=== PATIENT | female | born 1950 | race Caucasian/White ===

== ENCOUNTER 2016-08-13 19:19 | Emergency (ER) | payer MEDICARE, BC ==
[2016-08-13 19:36] VITALS: BP 142/93
[2016-08-13] MEDS ORDERED: Sodium Chloride 0.9% 250 ML IV ONE (20:04)
--- NOTE | 2016-08-13 20:04 | EDM.PDOC ---
ED HPI EYE COMPLAINT - General Chief Complaint: Eye Problems Stated Complaint: POSS EYELASH IN EYE Time Seen by Provider: 08/13/16 19:33 Source: Reports: Patient, RN notes reviewed - History of Present Illness INITIAL COMMENTS - FREE TEXT/NARRATIVE: 65 year old female with foreign body sensation R eye. feels scratchy. This started last evening but has become more irriatated today. She tried to flush her eye at home. Her eye is more sore this evening, R lateral eye. Does not wear contacts. No mattering or crusting. - Related Data Allergies/ADRs: Allergies amoxicillin trihydrate [From Augmentin] Allergy (Severe, Verified 04/24/14 11:04 ) Hives doxycycline Allergy (Severe, Verified 04/24/14 11:04) Swelling potassium clavulanate [From Augmentin] Allergy (Severe, Verified 04/24/14 11:04) Hives Home Meds: Ambulatory Orders Medication Instructions Recorded Confirmed Aspirin [Children's Aspirin] 81 mg PO DAILY 08/30/13 08/13/16 Cyclobenzaprine [Flexeril] 20 mg PO BID 08/30/13 08/13/16 Docusate Sodium [Colace] 1 tab PO BEDTIME 08/30/13 08/13/16 Gabapentin [Neurontin] 300 mg PO DAILY 08/30/13 08/13/16 Hydrocodone/Acetaminophen 1 each PO Q6HR PRN 08/30/13 08/13/16 [Hydrocodone-Acetaminophen 5-325] Levothyroxine Sodium [Synthroid] 75 mcg PO DAILY 08/30/13 08/13/16 Colesevelam HCl [Welchol] 625 mg PO BID 04/24/14 08/13/16 Gemfibrozil 300 mg PO BID 08/13/16 08/13/16 Past Medical History HEENT History: Reports: Cataract Cardiovascular History: Reports: High cholesterol, Hypertension Respiratory History: Reports: Bronchitis, recurrent, PE Gastrointestinal History: Reports: Diverticulosis, GERD 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 Endocrine/Metabolic History: Reports: Hypothyroidism - Past Surgical History HEENT Surgical History: Reports: Cataract surgery, Tonsillectomy Other HEENT Surgeries/Procedures: 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; 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 GI Surgical History: Reports: Other (see below) Other GI Surgeries/Procedures: partial large intestine removed Female Surgical History: Reports: Other (see below) Other Female Surgeries/Procedures: ru[tured ovary Social & Family History - Tobacco Use Smoking Status *Q: Never Smoker Years of Tobacco use: 15 Used Tobacco, but Quit: Yes Month Tobacco Last Used: four years ago - Caffeine Use Caffeine Use: Reports: Coffee - Alcohol Use Days Per Week of Alcohol Use: 0 - Recreational Drug Use Recreational Drug Use: No ED ROS GENERAL - Review of Systems Review Of Systems: See Below Constitutional: Denies: fever, chills HEENT: Reports: Eye pain (r lateral eye feels scratchy. ). Denies: Contact Lenses, Eye discharge Respiratory: Denies: Shortness of Breath Cardiovascular: Denies: Chest pain GI/Abdominal: Denies: Nausea, Vomiting Musculoskeletal: Reports: no symptoms Skin: Denies: rash Neurological: Denies: Headache ED EXAM GENERAL W FULL EYE - Physical Exam Exam: See Below General Appearance: alert, no apparent distress Eye Exam: right eye: conjunctival injection (mild, lateral aspect of eye), bilateral eye: PERRL Cornea Exam: bilateral: normal appearance Anterior Chamber: bilateral: normal appearance Nose: normal inspection Throat/Mouth: Normal inspection Head: No: facial swelling Neck: supple Respiratory/Chest: no respiratory distress Neurological: alert, oriented, no motor/sensory deficits Skin Exam: Warm, Dry, Normal color, No rash Course - Vital Signs Last Recorded V/S: Last Vital Signs Temp 98.1 F 08/13/16 19:34 Pulse 93 08/13/16 19:34 Resp 20 08/13/16 19:34 BP 142/93 H 08/13/16 19:34 Pulse Ox 94 L 08/13/16 19:34 - Orders/Labs/Meds Orders: Active Orders 24 hr Category Date Time Status Sodium Chloride 0.9% [Normal Saline] 250 ml Med 08/13/16 20:04 Active IV .BOLUS Medication Orders Sodium Chloride (Normal Saline) 250 mls @ 999 mls/hr IV .BOLUS ONE Stop: 08/13/16 20:19 Meds: Medications Generic Name Dose Route Start Last Admin Trade Name Freq PRN Reason Stop Dose Admin Sodium Chloride 250 mls @ 999 mls/hr 08/13/16 20:04 Normal Saline IV 08/13/16 20:19 .BOLUS ONE - Re-Assessments/Exams Free Text/Narrative Re-Assessment/Exam: 08/13/16 20:07 no foreign material seen. she had good relief of discomfort with topical propericaine. Cornea looks good. Is suspect whatevever was in her eye is out. She probably flushed it out at home and now residual irritation. Will further flush her eye with 250 cc NS. Departure - Departure Time of Disposition: 20:09 Disposition: Home, Self-Care 01 Condition: fair Clinical Impression: Conjunctivitis Qualifiers: Chronic conjunctivitis type: unspecified Laterality: right Forms: ED Department Discharge Additional Instructions: there is no foreign body visible at this time, you can alternate tylenol and ibuprofen as needed for discomfort. You can also alternate warm and cool compresses as needed. Your eye should feel better tomorrow and should be getting back to normal by Monday. Follow up with your eye Dr if not completely back to normal Monday as expected. - My Orders Last 24 Hours: My Active Orders 08/13/16 20:04 Sodium Chloride 0.9% [Normal Saline] 250 ml IV .BOLUS - Assessment/Plan Last 24 Hours: My Active Orders 08/13/16 20:04 Sodium Chloride 0.9% [Normal Saline] 250 ml IV .BOLUS
== END 2016-08-13 20:28 | disposition home or self-care (01) ==
LOC: JD.ED 19:19
DX: H10.9 Unspecified conjunctivitis (principal); E78.00 Pure hypercholesterolemia, unspecified; I10 Essential (primary) hypertension; K21.9 Gastro-esophageal reflux disease without esophagitis; E03.9 Hypothyroidism, unspecified; Z98.49 Cataract extraction status, unspecified eye; Z98.890 Other specified postprocedural states; Z88.1 Allergy status to other antibiotic agents; Z88.8 Allergy status to other drugs, medicaments and biological substances
CPT/HCPCS: 99283; J7040; 99282

== ENCOUNTER 2016-12-12 06:00 | Inpatient (IN) | payer MEDICARE, BC ==
[~2016-12-12 06:00] MED LIST: Lactated Ringers 1,000 ML IV SCH; Lidocaine 1%/Sod Bicarbonate in NS 8.4% 1 ML Syringe IV PRN; Sodium Chloride 0.9% 10 ML Syringe FLUSH PRN
--- NOTE | 2016-12-12 06:51 | PCM.PREANE ---
Preanesthetic Assessment - Anesthesia/Transfusion/Family Hx Anesthesia History: Prior Anesthesia Without Reaction Family History of Anesthesia Reaction: No Transfusion History: No Prior Transfusion(s) - Review of Systems General: No Symptoms Pulmonary: No Symptoms Cardiovascular: Dyspnea on Exertion Gastrointestinal: No Symptoms Neurological: No Symptoms Other: Reports: Easy Bruising, Thyroid Problems (hypothyroid) - Physical Assessment NPO Status Date: 12/11/16 NPO Status Time: 20:30 Pulse: 96 O2 Sat by Pulse Oximetry: 90 Respiratory Rate: 16 Blood Pressure: 142/85 Temperature: 36.8 C Vital Signs: Last Vital Signs Temp 36.8 C 12/12/16 06:15 Pulse 96 12/12/16 06:15 Resp 16 12/12/16 06:15 BP 142/85 H 12/12/16 06:15 Pulse Ox 90 L 12/12/16 06:15 Height: 1.63 m Weight: 97.069 kg ASA Class: 2 Mental Status: Alert & Oriented x3 Airway Class: Mallampati = 2 Dentition: Reports: Normal Dentition Thyro-Mental Finger Breadths: 3 Mouth Opening Finger Breadths: 3 ROM/Head Extension: Full Lungs: Clear to Auscultation, Normal Respiratory Effort Cardiovascular: Regular Rate, Regular Rhythm, No Murmurs - Lab Values: Laboratory Last Values WBC 8.88 K/mm3 (3.98-10.04) 11/25/16 11:36 RBC 4.63 M/mm3 (3.98-5.22) 11/25/16 11:36 Hgb 14.6 gm/L (11.2-15.7) 11/25/16 11:36 Hct 43.5 % (34.1-44.9) 11/25/16 11:36 MCV 94.0 fl (79.4-94.8) 11/25/16 11:36 MCH 31.5 pg (25.6-32.2) 11/25/16 11:36 MCHC 33.6 g/dl (32.2-35.5) 11/25/16 11:36 RDW Std Deviation 47.0 fL (36.4-46.3) H 11/25/16 11:36 Plt Count 308 K/mm3 (182-369) 11/25/16 11:36 MPV 10.9 fl (9.4-12.3) 11/25/16 11:36 Neut % (Auto) 60.8 % (34.0-71.1) 11/25/16 11:36 Lymph % (Auto) 28.9 % (19.3-51.7) 11/25/16 11:36 Pratt % (Auto) 8.1 % (4.7-12.5) 11/25/16 11:36 Eos % (Auto) 1.7 (0.7-5.8) 11/25/16 11:36 Baso % (Auto) 0.2 % (0.1-1.2) 11/25/16 11:36 Neut # (Auto) 5.39 K/mm3 (1.56-6.13) 11/25/16 11:36 Lymph # (Auto) 2.57 K/mm3 (1.18-3.74) 11/25/16 11:36 Pratt # (Auto) 0.72 K/mm3 (0.24-0.36) H 11/25/16 11:36 Eos # (Auto) 0.15 K/mm3 (0.04-0.36) 11/25/16 11:36 Baso # (Auto) 0.02 K/mm3 (0.01-0.08) 11/25/16 11:36 C-Reactive Protein 0.3 mg/dL (<1.0) 11/25/16 11:36 MRSA (PCR) Negative 11/25/16 11:36 - Allergies Allergies/Adverse Reactions: Allergies Allergy/AdvReac Type Severity Reaction Status Date / Time amoxicillin trihydrate Allergy Severe Hives Verified 12/08/16 14:53 [From Augmentin] doxycycline Allergy Severe Swelling Verified 12/08/16 14:53 potassium clavulanate Allergy Severe Hives Verified 12/08/16 14:53 [From Augmentin] Euoeeks-Yxu-Ozv Reductase AdvReac Muscle Verified 12/09/16 08:43 Inhibitor Aches - Anesthesia Plan Pre-Op Medication Ordered: None - Acknowledgements Anesthesia Type Planned: Spinal Pt an Appropriate Candidate for the Planned Anesthesia: Yes Alternatives and Risks of Anesthesia Discussed w Pt/Guardian: Yes Pt/Guardian Understands and Agrees with Anesthesia Plan: Yes PreAnesthesia Questionnaire HEENT History: Reports: None Cardiovascular History: Reports: High Cholesterol, Hypertension Respiratory History: Reports: None Gastrointestinal History: Reports: GERD Genitourinary History: Reports: None 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 Musculoskeletal History: Reports: Fibromyalgia, Osteoarthritis Other Musculoskeletal History: Restless leg syndrome Neurological History: Reports: None Psychiatric History: Reports: None Endocrine/Metabolic History: Reports: Hypothyroidism Hematologic History: Reports: None Immunologic History: Reports: None Oncologic (Cancer) History: Reports: None Dermatologic History: Reports: None - Past Surgical History Head Surgeries/Procedures: Reports: None HEENT Surgical History: Reports: None Cardiovascular Surgical History: Reports: None Respiratory Surgical History: Reports: None GI Surgical History: Reports: Cholecystectomy Female Surgical History: Reports: None Endocrine Surgical History: Reports: None Neurological Surgical History: Reports: None Musculoskeletal Surgical History: Reports: None Oncologic Surgical History: Reports: None Dermatological Surgical History: Reports: None - SUBSTANCE USE Smoking Status *Q: Former Smoker Tobacco Use Within Last Twelve Months: No Second Hand Smoke Exposure: No Days Per Week of Alcohol Use: 0 Recreational Drug Use History: No - HOME MEDS Home Medications: Home Meds Docusate Sodium [Colace] 1 tab PO BEDTIME 08/30/13 [History] Hydrocodone/Acetaminophen [Hydrocodone-Acetaminophen 5-325] 1 each PO Q6HR PRN 08/30/13 [History] Levothyroxine Sodium [Synthroid] 75 mcg PO DAILY 08/30/13 [History] Colesevelam HCl [Welchol] 625 mg PO BID 04/24/14 [History] Gemfibrozil 300 mg PO BID 08/13/16 [History] Aspirin [Halfprin] 81 mg PO DAILY 12/08/16 [History] Gabapentin [Neurontin] 100 - 200 mg PO QAM 12/08/16 [History] Gabapentin [Neurontin] 300 mg PO BEDTIME 12/08/16 [History] Relafen. 500 mg PO BID 12/08/16 [History] amLODIPine [Norvasc] 10 mg PO DAILY 12/08/16 [History] traZODone 50 mg PO BEDTIME 12/08/16 [History] - CURRENT (IN HOUSE) MEDS Current Meds: Current Medications Lactated Ringer's (Ringers, Lactated) 1,000 mls @ 125 mls/hr IV ASDIRECTED SAL Lidocaine/Sodium Bicarbonate (Buffered Lidocaine 1% In Ns 8.4%) 0.25 ml IV ONETIME PRN PRN Reason: Prior to IV Start Sodium Chloride (Saline Flush) 10 ml FLUSH ASDIRECTED PRN PRN Reason: Keep Vein Open Discontinued Medications Bupivacaine HCl (Marcaine 0.25%) Confirm Administered Dose 30 ml .ROUTE .STK- MED ONE Stop: 12/12/16 06:07 Cefazolin Sodium (Ancef) Confirm Administered Dose 2 gm .ROUTE .STK-MED ONE Stop: 12/12/16 06:06 Iodine (Iodine 2% Mild Tincture) Confirm Administered Dose 30 ml .ROUTE .STK- MED ONE Stop: 12/12/16 06:06 Tranexamic Acid (Cyklokapron) Confirm Administered Dose 1,000 mg .ROUTE .STK- MED ONE Stop: 12/12/16 06:06
[2016-12-12] MEDS ORDERED: Propofol 200 MG/20 ML SDV ONE ×2 (07:11→08:10)
[2016-12-12] MEDS ORDERED: Ondansetron 4 MG/2 ML SDV ONE (07:11)
[2016-12-12] MEDS ORDERED: fentaNYL 100 MCG/2 ML SDV ONE (07:11)
[2016-12-12] MEDS ORDERED: Midazolam 1 MG/ML 2 ML SDV ONE (07:12)
[2016-12-12] MEDS ORDERED: Morphine PF 10 MG/10 ML SDV ONE (07:12)
[2016-12-12] MEDS ORDERED: ceFAZolin 1 GM Vial ONE (07:38)
[2016-12-12] MEDS ORDERED: Lactated Ringers 1,000 ML ONE (07:40)
[2016-12-12] MEDS: ceFAZolin 1 GM Vial ONE ×2 (07:50→08:17)
[2016-12-12] MEDS: Iodine/Sodium Iodide 2% Tincture 30 ML Bottle ONE ×2 (07:50→08:13)
[2016-12-12] MEDS: Morphine 8 MG, EPINEPHrine 0.3 MG, Cefuroxime 750 MG, Ketorolac 30 MG, Sodium Chloride ... ONE ×15 (07:51→12:15)
[2016-12-12] MEDS: Vancomycin 1 GM SDV ONE ×2 (07:51→08:24)
[2016-12-12] MEDS: Bupivacaine 0.25% 30 ML SDV ONE ×2 (07:51→08:22)
[2016-12-12] MEDS ORDERED: ePHEDrine 50 MG/ML SDV ONE (07:58)
[2016-12-12] MEDS ORDERED: Sennosides 8.6 MG Tab PO PRN (08:50)
[2016-12-12] MEDS ORDERED: Morphine 2 MG/ML Syringe IVPUSH PRN (08:50)
[2016-12-12] MEDS ORDERED: Bisacodyl 5 MG Tab PO PRN (08:50)
[2016-12-12] MEDS ORDERED: Magnesium Hydroxide 400 MG/5 ML Susp 30 ML Cup PO PRN (08:50)
[2016-12-12] MEDS ORDERED: fentaNYL 100 MCG/2 ML SDV IVPUSH PRN (09:00)
--- NOTE | 2016-12-12 09:01 | PCM.POSTAN ---
POST ANESTHESIA ASSESSMENT - MENTAL STATUS Mental Status: Alert, Oriented - VITAL SIGNS Pulse Rate: 107 SaO2: 94 Resp Rate: 14 Blood Pressure: 114/60 Temperature: 36.8 C - RESPIRATORY Respiratory Status: Respiratory Rate WNL, Airway Patent, O2 Saturation Stable, Supplemental Oxygen - CARDIOVASCULAR CV Status: Pulse Rate WNL, Blood Pressure Stable - GASTROINTESTINAL GI Status: No Symptoms - PAIN Pain Score: 0 - POST OP HYDRATION Hydration Status: Adequate & Stable - OBSERVATIONS Free Text/Narrative:: no anesthesia complications noted
[2016-12-12] MEDS ORDERED: Naloxone 0.4 MG/ML SDV IVPUSH PRN (09:30)
--- NOTE | 2016-12-12 10:17 | CR ---
Left knee: AP and lateral views of the left knee were obtained. Comparison: Previous left knee study of 01/06/16. Left knee prosthesis is seen. Components are aligned. Underlying bony structures are intact. No fracture is seen. Air is noted within the joint secondary to the surgical procedure. Impression: 1. Satisfactory radiographic appearance of recently placed left knee prosthesis. Diagnostic code #2
[2016-12-12] MEDS: Levothyroxine 75 MCG Tab PO SCH (11:16)
[2016-12-12] MEDS: Docusate Sodium 100 MG Cap PO SCH ×2 (11:17→22:18)
[2016-12-12] MEDS: amLODIPine 10 MG Tab PO SCH (11:17)
[2016-12-12] MEDS: Famotidine 20 MG Tab PO SCH ×3 (11:18→22:17)
[2016-12-12] MEDS ORDERED: diphenhydrAMINE 50 MG/ML SDV IVPUSH ONE (11:58)
[2016-12-12] MEDS: Gemfibrozil 600 MG Tab PO SCH ×2 (12:10→22:17)
[2016-12-12] MEDS: Colesevelam 625 MG Tab PO SCH ×2 (12:10→22:16)
[2016-12-12] MEDS ORDERED: Albuterol 0.083% 2.5 MG/3 ML Neb Soln NEB PRN (14:27)
--- NOTE | 2016-12-12 14:42 | PCM.CONS ---
H&P History of Present Illness - General Date of Service: 12/12/16 Admit Problem/Dx: Admission Diagnosis/Problem Admission Diagnosis/Problem Osteoarthritis of knee Source of Information: Patient, Old Records, Provider, RN Notes Reviewed, Significant Other History Limitations: Reports: Physical Impairment - History of Present Illness Initial Comments - Free Text/Narative: This is a 66-year-old, white female, with past medical history of HTN, GERD, Hypothyroidism, OA, RLS and Fibromyalgia who underwent left total knee arthroplasty post operative day zero. Patient is doing relatively well. Currently, her pain is controlled. She denies any acute issues. Hospital Medicine was consulted for postoperative care. Left Knee Pain Score (Numeric/FACES): 10 - Related Data Allergies/Adverse Reactions: Allergies Allergy/AdvReac Type Severity Reaction Status Date / Time amoxicillin trihydrate Allergy Severe Hives Verified 12/08/16 14:53 [From Augmentin] doxycycline Allergy Severe Swelling Verified 12/08/16 14:53 potassium clavulanate Allergy Severe Hives Verified 12/08/16 14:53 [From Augmentin] Qwutapi-Cxd-[id number] Reductase AdvReac Muscle Verified 12/09/16 08:43 Inhibitor Aches Home Medications: Home Meds Docusate Sodium [Colace] 1 tab PO BEDTIME 08/30/13 [History] Hydrocodone/Acetaminophen [Hydrocodone-Acetaminophen 5-325] 1 each PO Q6HR PRN 08/30/13 [History] Levothyroxine Sodium [Synthroid] 75 mcg PO DAILY 08/30/13 [History] Colesevelam HCl [Welchol] 625 mg PO BID 04/24/14 [History] Gemfibrozil 300 mg PO BID 08/13/16 [History] Aspirin [Halfprin] 81 mg PO DAILY 12/08/16 [History] Gabapentin [Neurontin] 100 - 200 mg PO QAM 12/08/16 [History] Gabapentin [Neurontin] 300 mg PO BEDTIME 12/08/16 [History] Relafen. 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 Musculoskeletal History: Reports: Fibromyalgia, Osteoarthritis Other Musculoskeletal History: Restless leg syndrome Neurological History: Reports: None Psychiatric History: Reports: None Endocrine/Metabolic History: Reports: Hypothyroidism Hematologic History: Reports: None Immunologic History: Reports: None Oncologic (Cancer) History: Reports: None Dermatologic History: Reports: None - Past Surgical History Head Surgeries/Procedures: Reports: None HEENT Surgical History: Reports: None Cardiovascular Surgical History: Reports: None Respiratory Surgical History: Reports: None GI Surgical History: Reports: Cholecystectomy Female Surgical History: Reports: None Endocrine Surgical History: Reports: None Neurological Surgical History: Reports: None Musculoskeletal Surgical History: Reports: None Oncologic Surgical History: Reports: None Dermatological Surgical History: Reports: None Social & Family History - Tobacco Use Smoking Status *Q: Former Smoker Years of Tobacco use: 40 Packs/Tins Daily: 1 Used Tobacco, but Quit: Yes Month Tobacco Last Used: 01/17/09 Second Hand Smoke Exposure: No - Caffeine Use Caffeine Use: Reports: Coffee - Alcohol Use Days Per Week of Alcohol Use: 0 - Recreational Drug Use Recreational Drug Use: No Drug Use in Last 12 Months: No H&P Review of Systems - Review of Systems: Review Of Systems: See Below General: Denies: Fever, Chills, Malaise, Weakness, Fatigue HEENT: Reports: No Symptoms Pulmonary: Denies: Shortness of Breath Cardiovascular: Denies: Chest Pain Gastrointestinal: Denies: Abdominal Pain, Nausea, Vomiting Genitourinary: Reports: No Symptoms Musculoskeletal: Reports: No Symptoms Skin: Denies: Cyanosis, Pruritis, Rash, Erythema Psychiatric: Denies: Depression, Anxiety, Agitation, Hallucinations, Suicidal Ideation, Homicidal Ideation Neurological: Reports: Difficulty Walking, Gait Disturbance. Denies: Confusion , Weakness Hematologic/Lymphatic: Reports: No Symptoms Immunologic: Reports: No Symptoms Exam - Exam Exam: See Below - Vital Signs Vital Signs: Last Vital Signs Temp 36.5 C 12/12/16 13:46 Pulse 91 12/12/16 13:46 Resp 16 12/12/16 13:46 BP 120/61 12/12/16 13:46 Pulse Ox 93 L 12/12/16 13:46 Weight: 97.069 kg - Exam Quality Assessment: Supplemental Oxygen General: Alert, Oriented, Cooperative, Other (Overweight). No: Mild Distress HEENT: Conjunctiva Clear, EACs Clear, EOMI, Hearing Intact, Mucosa Moist & [place] , Nares Patent, Normal Nasal Septum, Posterior Pharynx Clear, Pupils Equal, Pupils Reactive Neck: Supple, Trachea Midline, +2 Carotid Pulse wo Bruit, Full Range of Motion Cardiovascular: Regular Rate, Regular Rhythm GI/Abdominal Exam: Normal Bowel Sounds, Soft, Non-Tender, No Organomegaly, No Distention, No Abnormal Bruit, No Mass (Female) Exam: Other (indwelling ball catheter) Rectal (Female) Exam: Deferred Back Exam: Normal Inspection, Decreased Range of Motion Extremities: Normal Inspection, Normal Range of Motion, Non-Tender, No Pedal Edema, Normal Capillary Refill Peripheral Pulses: 2+: Posterior Tibial (L), Posterior Tibial (R), Dorsalis Pedis (L), Dorsalis Pedis (R) Skin: Warm, Dry, Intact Neuro Extensive - Mental Status: Oriented x3, Normal Cognition, Memory Intact Neuro Extensive - Motor, Sensory, Reflexes: CN II-XII Intact (limited but grossly intact), Abnormal Gait Psychiatric: Alert, Normal Affect, Normal Mood - Patient Data Result Diagrams: 11/25/16 11:36 Consult PN Assessment/Plan POD#: 0 Procedures: Procedures COMPLETE CBC W/AUTO DIFF WBC (12/08/15) COMPREHEN METABOLIC PANEL (12/08/15) CT LOWER EXTREMITY W/O DYE (12/21/15) CULTURE SCREEN ONLY (04/24/14) EMERGENCY DEPT VISIT (08/13/16) EMERGENCY DEPT VISIT (04/24/14) EMERGENCY DEPT VISIT (08/30/13) EXTREMITY STUDY (12/08/15) INFLUENZA A/B AG IA (04/24/14) MRI JNT OF LWR EXTRE W/O DYE (12/30/15) OFFICE/OUTPATIENT VISIT EST (12/21/15) ROUTINE VENIPUNCTURE (12/08/15) STREP A AG IA (04/24/14) X-RAY EXAM KNEE 4 OR MORE (08/30/13) X-RAY EXAM OF KNEE 3 (01/06/16) X-RAY EXAM OF KNEES (01/06/16) X-RAY EXAM OF SHOULDER (08/30/13) Problem List Initiated/Reviewed/Updated: Yes Plan: Assessment: Acute: Post-Operative Care State - Stable - Continue to monitor for hemodynamic instability S/p Left Total Knee Arthroplasty - Stable - DVT and Pain Management as per primary team Hx/o Chronic Knee Pain 2/2 OA - Pain Management as per primary team Chronic: HTN GERD Hypothyroidism RLS Fibromyalgia OA Plan: She is clinically stable Routine AM labs Continue home meds PT/OT consult IS q2 awake Thank you for the opportunity to participate in the management of this patient. Requesting Provider: Dr. Ocampo Date Consult Requested: 12/12/16 Reason for Consult: Post-Operative Care Patient History Reviewed: Yes Admission H&P Reviewed: Yes Consult Result/Summary: Stable
[2016-12-12] MEDS: ceFAZolin 2 GM in Premix Bag 1 BAG IV SCH ×2 (15:03→22:16)
[2016-12-12] MEDS: Ondansetron 4 MG/2 ML SDV IVPUSH PRN (15:49)
[2016-12-12] MEDS: Acetaminophen/oxyCODONE 325-5 MG Tab PO PRN ×2 (17:16→22:19)
[2016-12-12] MEDS ORDERED: diphenhydrAMINE 50 MG/ML SDV IVPUSH PRN (20:01)
[2016-12-12] MEDS: Ketorolac 15 MG/ML SDV IVPUSH PRN (20:11)
[2016-12-12] MEDS ORDERED: Gabapentin 300 MG Cap PO SCH (21:00)
[2016-12-12] MEDS ORDERED: traZODone 50 MG Tab PO SCH (21:00)
[2016-12-12] MEDS: Cyclobenzaprine 10 MG Tab PO PRN (22:19)
[2016-12-13] MEDS: Ketorolac 15 MG/ML SDV IVPUSH PRN (06:08)
[2016-12-13] MEDS: Acetaminophen/oxyCODONE 325-5 MG Tab PO PRN ×2 (06:09→11:28)
[2016-12-13] MEDS: Levothyroxine 75 MCG Tab PO SCH (06:09)
[2016-12-13] MEDS: ceFAZolin 2 GM in Premix Bag 1 BAG IV SCH (06:10)
[2016-12-13] MEDS ORDERED: Gabapentin 100 MG Cap PO SCH (08:00)
--- NOTE | 2016-12-13 08:12 | PCM48HPAN ---
Post Anesthesia Note - EVALUATION WITHIN 48HRS OF ANESTHETIC Vital Signs in Normal Range: Yes Patient Participated in Evaluation: Yes Respiratory Function Stable: Yes Airway Patent: Yes Cardiovascular Function Stable: Yes Hydration Status Stable: Yes Pain Control Satisfactory: Yes ("itchy" beadryl ordered) Nausea and Vomiting Control Satisfactory: Yes Mental Status Recovered: Yes - COMMENTS/OBSERVATIONS Free Text/Narrative:: no anesthesia complications noted
[2016-12-13] MEDS: Docusate Sodium 100 MG Cap PO SCH (08:15)
[2016-12-13] MEDS: Famotidine 20 MG Tab PO SCH (08:15)
[2016-12-13] MEDS: amLODIPine 10 MG Tab PO SCH (08:15)
[2016-12-13] MEDS: Colesevelam 625 MG Tab PO SCH (08:16)
[2016-12-13] MEDS: Gemfibrozil 600 MG Tab PO SCH (08:18)
[2016-12-13] MEDS: Ondansetron 4 MG/2 ML SDV IVPUSH PRN (08:34)
[2016-12-13] MEDS ORDERED: Aspirin 325 MG Tab.EC PO SCH (09:00)
[2016-12-13] MEDS ORDERED: Fluconazole 150 MG Tab PO ONE (10:00)
[2016-12-13] MEDS: Cyclobenzaprine 10 MG Tab PO PRN (11:29)
[2016-12-13 12:53] VITALS: BP 130/54
--- NOTE | 2016-12-13 13:21 | PCM.CONSN ---
- General Info Date of Service: 12/13/16 Admission Dx/Problem (Free Text): Admission Diagnosis/Problem Admission Diagnosis/Problem Osteoarthritis of knee POD #[address] Ocampo hgb stable at 11.6 today Continue on supplemental oxygen at 3L, sats 91%, is using IS at bedside. Has been up with PT. Doing well otherwise, pain under good control. Functional Status: Reports: Pain Controlled, Tolerating Diet, Ambulating, Urinating, Incentive Spirometry - Review of Systems General: Reports: No Symptoms HEENT: Reports: No Symptoms Pulmonary: Reports: No Symptoms. Denies: Shortness of Breath, Pleuritic Chest Pain, Cough, Wheezing Cardiovascular: Reports: No Symptoms Gastrointestinal: Reports: No Symptoms Genitourinary: Reports: No Symptoms Musculoskeletal: Reports: Leg Pain Skin: Reports: No Symptoms Neurological: Reports: No Symptoms Psychiatric: Reports: No Symptoms - Patient Data Vitals - Most Recent: Last Vital Signs Temp 98.1 F 12/13/16 11:14 Pulse 79 12/13/16 11:14 Resp 14 12/13/16 11:14 BP 130/54 L 12/13/16 11:14 Pulse Ox 90 L 12/13/16 11:14 Weight - Most Recent: 221 lb 1.6 oz I&O - Last 24 Hours: Intake & Output 12/12/16 12/13/16 12/13/16 22:59 06:59 14:59 Intake Total 1140 900 Output Total 350 900 Balance 790 0 Lab Results Last 24 Hours: Laboratory Results - last 24 hr 12/13/16 12/13/16 Range/Units 05:50 05:50 WBC 9.83 (3.98-10.04) K/mm3 RBC 3.72 L (3.98-5.22) M/mm3 Hgb 11.6 (11.2-15.7) gm/L Hct 36.2 (34.1-44.9) % MCV 97.3 H (79.4-94.8) fl MCH 31.2 (25.6-32.2) pg MCHC 32.0 L (32.2-35.5) g/dl RDW Std Deviation 50.1 H (36.4-46.3) fL Plt Count 283 (182-369) K/mm3 MPV 11.3 (9.4-12.3) fl Neut % (Auto) 70.0 (34.0-71.1) % Lymph % (Auto) 17.5 L (19.3-51.7) % Davison % (Auto) 11.2 (4.7-12.5) % Eos % (Auto) 0.9 (0.7-5.8) Baso % (Auto) 0.2 (0.1-1.2) % Neut # (Auto) 6.88 H (1.56-6.13) K/mm3 Lymph # (Auto) 1.72 (1.18-3.74) K/mm3 Davison # (Auto) 1.10 H (0.24-0.36) K/mm3 Eos # (Auto) 0.09 (0.04-0.36) K/mm3 Baso # (Auto) 0.02 (0.01-0.08) K/mm3 Sodium 139 (136-145) mEq/L Potassium 3.9 (3.5-5.1) mEq/L Chloride 104 (98-107) mEq/L Carbon Dioxide 25 (21-32) mEq/L Anion Gap 13.9 (5-15) BUN 14 (7-18) mg/dL Creatinine 0.6 (0.55-1.02) mg/dL Est Cr Clr Drug Dosing 77.49 mL/min Estimated GFR (MDRD) > 60 (>60) mL/min BUN/Creatinine Ratio 23.3 H (14-18) Glucose 136 H (80-115) mg/dL Calcium 8.9 (8.5-10.1) mg/dL Total Bilirubin 0.4 (0.2-1.0) mg/dL AST 26 (15-37) U/L ALT 30 (14-59) U/L Alkaline Phosphatase 101 (46-116) U/L Total Protein 6.6 (6.4-8.2) g/dl Albumin 3.3 L (3.4-5.0) g/dl Globulin 3.3 gm/dL Albumin/Globulin Ratio 1.0 (1-2) Med Orders - Current: Current Medications Albuterol (Proventil Neb Soln) 2.5 mg NEB Q4HRRT PRN PRN Reason: shortness of breath Last Admin: 12/13/16 07:56 Dose: 2.5 mg Amlodipine Besylate (Norvasc) 10 mg PO DAILY [facility] Last Admin: 12/13/16 08:15 Dose: 10 mg Aspirin (Ecotrin) 325 mg PO DAILY [facility] Last Admin: 12/13/16 08:15 Dose: 325 mg Bisacodyl (Dulcolax) 5 mg PO DAILY PRN PRN Reason: Constipation Colesevelam HCl (Welchol) 625 mg PO BID [facility] Last Admin: 12/13/16 08:16 Dose: 625 mg Cyclobenzaprine HCl (Flexeril) 5 mg PO TID PRN PRN Reason: Spasms Last Admin: 12/13/16 11:29 Dose: 5 mg Diphenhydramine HCl (Benadryl) 25 mg IVPUSH Q4H PRN PRN Reason: Itching Last Admin: 12/12/16 20:12 Dose: 25 mg Docusate Sodium (Colace) 100 mg PO BID [facility] Last Admin: 12/13/16 08:15 Dose: 100 mg Famotidine (Pepcid) 20 mg PO Q12H [facility] Last Admin: 12/13/16 08:15 Dose: 20 mg Gabapentin (Neurontin) 100 - 200 mg PO QAM [facility] Last Admin: 12/13/16 08:14 Dose: 100 mg Gabapentin (Neurontin) 300 mg PO BEDTIME [facility] Last Admin: 12/12/16 22:18 Dose: 300 mg Gemfibrozil (Lopid) 300 mg PO BID [facility] Last Admin: 12/13/16 08:18 Dose: 300 mg Levothyroxine Sodium (Levothyroxine) 75 mcg PO ACBREAKFAST [facility] Last Admin: 12/13/16 06:09 Dose: 75 mcg Magnesium Hydroxide (Milk Of Magnesia) 30 ml PO BID PRN PRN Reason: Constipation Morphine Sulfate (Morphine) 2 mg IVPUSH Q2H PRN PRN Reason: Breakthrough Pain Ondansetron HCl (Zofran) 4 mg IVPUSH Q6H PRN PRN Reason: Nausea/Vomiting Last Admin: 12/13/16 08:34 Dose: 4 mg Oxycodone/Acetaminophen (Percocet 325-5 Mg) 1 - 2 tab PO Q4H PRN PRN Reason: Pain Last Admin: 12/13/16 11:28 Dose: 2 tab Senna (Senna) 8.6 mg PO BID PRN PRN Reason: Constipation Sodium Chloride (Saline Flush) 10 ml FLUSH ASDIRECTED PRN PRN Reason: Keep Vein Open Trazodone HCl (Trazodone) 50 mg PO BEDTIME SAL Last Admin: 12/12/16 22:16 Dose: 50 mg Discontinued Medications Bupivacaine HCl (Marcaine 0.25%) Confirm Administered Dose 30 ml .ROUTE .STK- MED ONE Stop: 12/12/16 06:07 Last Admin: 12/12/16 08:22 Dose: 30 ml Cefazolin Sodium (Ancef) Confirm Administered Dose 2 gm .ROUTE .STK-MED ONE Stop: 12/12/16 06:06 Last Admin: 12/12/16 08:17 Dose: 2 gm Cefazolin Sodium (Ancef) Confirm Administered Dose 2 gm .ROUTE .STK-MED ONE Stop: 12/12/16 07:39 Morphine Sulfate 8 mg/Epinephrine HCl 0.3 mg/Cefuroxime Sodium 750 mg/Ketorolac Tromethamine 30 mg/Sodium Chloride 27.9 ml 0 mg .XX ONETIME ONE Stop: 12/12/16 07:41 Last Admin: 12/12/16 12:15 Dose: Not Given Diphenhydramine HCl (Benadryl) 25 mg IVPUSH ONETIME ONE Stop: 12/12/16 11:59 Last Admin: 12/12/16 12:09 Dose: 25 mg Ephedrine Sulfate (Ephedrine Sulfate) Confirm Administered Dose 50 mg .ROUTE .STK-MED ONE Stop: 12/12/16 07:59 Fentanyl (Sublimaze) Confirm Administered Dose 100 mcg .ROUTE .STK-MED ONE Stop: 12/12/16 07:12 Fentanyl (Sublimaze) 50 mcg IVPUSH Q5M PRN PRN Reason: PAIN Stop: 12/12/16 12:00 Fluconazole (Diflucan) 150 mg PO ONETIME ONE Stop: 12/13/16 10:01 Last Admin: 12/13/16 11:29 Dose: 150 mg Lactated Ringer's (Ringers, Lactated) 1,000 mls @ 125 mls/hr IV ASDIRECTED SAL Last Admin: 12/12/16 06:30 Dose: 125 mls/hr Lactated Ringer's (Ringers, Lactated) Confirm Administered Dose 1,000 mls @ as directed .ROUTE .STK-MED ONE Stop: 12/12/16 07:41 Cefazolin Sodium/Dextrose 2 gm (/ Premix) 50 mls @ 100 mls/hr IV Q8H SAL Stop: 12/13/16 07:29 Last Admin: 12/13/16 06:10 Dose: 100 mls/hr Iodine (Iodine 2% Mild Tincture) Confirm Administered Dose 30 ml .ROUTE .STK- MED ONE Stop: 12/12/16 06:06 Last Admin: 12/12/16 08:13 Dose: 18 ml Ketorolac Tromethamine (Toradol) 15 mg IVPUSH Q8H PRN PRN Reason: Pain Stop: 12/13/16 09:31 Last Admin: 12/13/16 06:08 Dose: 15 mg Lidocaine/Sodium Bicarbonate (Buffered Lidocaine 1% In Ns 8.4%) 0.25 ml IV ONETIME PRN PRN Reason: Prior to IV Start Last Admin: 12/12/16 06:30 Dose: 0.25 ml Midazolam HCl (Versed 1 Mg/Ml) Confirm Administered Dose 2 mg .ROUTE .STK-MED ONE Stop: 12/12/16 07:13 Morphine Sulfate (Duramorph Pf) Confirm Administered Dose 10 mg .ROUTE .STK-MED ONE Stop: 12/12/16 07:13 Naloxone HCl (Narcan) 0.1 mg IVPUSH Q5M PRN PRN Reason: Oversedation Stop: 12/12/16 09:46 Ondansetron HCl (Zofran) Confirm Administered Dose 4 mg .ROUTE .STK-MED ONE Stop: 12/12/16 07:12 Propofol (Diprivan 20 Ml) Confirm Administered Dose 200 mg .ROUTE .STK-MED ONE Stop: 12/12/16 07:12 Propofol (Diprivan 20 Ml) Confirm Administered Dose 200 mg .ROUTE .STK-MED ONE Stop: 12/12/16 08:11 Tranexamic Acid (Cyklokapron) Confirm Administered Dose 1,000 mg .ROUTE .STK- MED ONE Stop: 12/12/16 06:06 Last Admin: 12/12/16 08:27 Dose: 1,000 mg Vancomycin HCl (Vancomycin) Confirm Administered Dose 1 gm .ROUTE .STK-MED ONE Stop: 12/12/16 06:47 Last Admin: 12/12/16 08:24 Dose: 1 gm - Exam Quality Assessment: Supplemental Oxygen, DVT Prophylaxis General: Alert, Oriented, Cooperative, No Acute Distress HEENT: Pupils Equal, Pupils Reactive, EOMI, Mucous Membr. Moist/Ethan Neck: Supple Lungs: Clear to Auscultation, Normal Respiratory Effort, Decreased Breath Sounds (bases) Cardiovascular: Regular Rate, Regular Rhythm, No Murmurs GI/Abdominal Exam: Normal Bowel Sounds, Soft, Non-Tender (Female) Exam: Deferred Back Exam: Normal Inspection Extremities: Other (teds, SCD's ) Peripheral Pulses: 2+: Dorsalis Pedis (L), Dorsalis Pedis (R) Wound/Incisions: Dressing Dry and Intact Neurological: No New Focal Deficit Psy/Mental Status: Alert, Normal Affect, Normal Mood Consult PN Assessment/Plan POD#: 1 Procedures: Procedures COMPLETE CBC W/AUTO DIFF WBC (12/08/15) COMPREHEN METABOLIC PANEL (12/08/15) CT LOWER EXTREMITY W/O DYE (12/21/15) CULTURE SCREEN ONLY (04/24/14) EMERGENCY DEPT VISIT (08/13/16) EMERGENCY DEPT VISIT (04/24/14) EMERGENCY DEPT VISIT (08/30/13) EXTREMITY STUDY (12/08/15) INFLUENZA A/B AG IA (04/24/14) MRI JNT OF LWR EXTRE W/O DYE (12/30/15) OFFICE/OUTPATIENT VISIT EST (12/21/15) ROUTINE VENIPUNCTURE (12/08/15) STREP A AG IA (04/24/14) X-RAY EXAM KNEE 4 OR MORE (08/30/13) X-RAY EXAM OF KNEE 3 (01/06/16) X-RAY EXAM OF KNEES (01/06/16) X-RAY EXAM OF SHOULDER (08/30/13) (1) S/P total knee arthroplasty SNOMED Code(s): 0184635329291, 327931087, 2418087945530 Code(s): Z96.659 - PRESENCE OF UNSPECIFIED ARTIFICIAL KNEE JOINT Priority: High Current Visit: Yes Qualifiers: Laterality: left Qualified Code(s): Z96.652 - Presence of left artificial knee joint (2) Osteoarthritis SNOMED Code(s): 865742673 Code(s): M19.90 - UNSPECIFIED OSTEOARTHRITIS, UNSPECIFIED SITE Priority: High Current Visit: Yes Qualifiers: Osteoarthritis location: knee Osteoarthritis type: primary Laterality: left Qualified Code(s): M17.12 - Unilateral primary osteoarthritis, left knee (3) HLD (hyperlipidemia) SNOMED Code(s): 76811977 Code(s): E78.5 - HYPERLIPIDEMIA, UNSPECIFIED Priority: Medium Current Visit: No Qualifiers: Hyperlipidemia type: unspecified Qualified Code(s): E78.5 - Hyperlipidemia , unspecified (4) Hypothyroidism SNOMED Code(s): 36145325 Code(s): E03.9 - HYPOTHYROIDISM, UNSPECIFIED Priority: Medium Current Visit: No Qualifiers: Hypothyroidism type: unspecified Qualified Code(s): E03.9 - Hypothyroidism , unspecified (5) Fibromyalgia SNOMED Code(s): 775415488 Code(s): M79.7 - FIBROMYALGIA Priority: Medium Current Visit: No (6) Restless leg syndrome SNOMED Code(s): 98569352 Code(s): G25.81 - RESTLESS LEGS SYNDROME Priority: Medium Current Visit: No (7) Hypoxia SNOMED Code(s): 924207740, 202618560 Code(s): R09.02 - HYPOXEMIA Priority: High Current Visit: Yes Problem List Initiated/Reviewed/Updated: Yes My Orders Last 24 Hours: My Active Orders 12/12/16 14:27 Albuterol [Proventil Neb Soln] 2.5 mg NEB Q4HRRT PRN 12/12/16 14:30 RT Aerosol Therapy [RC] ASDIRECTED 12/13/16 13:12 Ready for Discharge [RC] PER UNIT ROUTINE Plan: I/P: S/P Lt TKA with Dr. Ocampo, POD #1 -Pain management and DVT prophylax per ortho -PT/OT -IS/RT -Continue with supplemental oxygen for now; discuss with Ortho -Hgb stable at 11.6 -Postop nausea- resolved with scopolamine patch Postoperative hypoxia -CXR obtained today- unremarkable for acute findings by my independent review , awaiting radiology report -Cont with supplemental O2 -Home qualifying oxygen study -DC home with home O2 with f/up with PCP within 2-3 days -Suspect ? undx DARLIN Chronic medical conditions: Cont home meds HLD Hypothyroidism Fibromyalgia RLS Other: GI prophylax CM/SW for assist with DC planning- ok for DC today with supplemental oxygen from Hospitalist standpoint. Patient is Full Code status
[2016-12-13] MEDS ORDERED: Scopolamine 1.5 MG Transdermal Patch TOP ONE (13:42)
--- NOTE | 2016-12-13 15:09 | CR ---
Chest: 2 views of the chest were obtained. Comparison: Previous chest x-ray of 11/07/10. Linear densities are noted within the left lung base. Findings have the appearance of atelectasis. Minimal atelectasis noted within the right lung base. Lungs otherwise are clear. Heart size and mediastinum are normal. Bony structures are within normal limits for the patient's age. Surgical clips are seen within the upper abdomen. Impression: 1. Left lower lobe atelectasis and minimal right lower lobe atelectasis. 2. Other incidental findings. Diagnostic code #
--- NOTE | 2016-12-15 17:40 | PCM.OPNOTE ---
- General Post-Op/Procedure Note Date of Surgery/Procedure: 12/12/16 Operative Procedure(s): left total knee arthroplasty Pre Op Diagnosis: left knee osteoarthrosis Post-Op Diagnosis: Same Anesthesia Technique: Local, MAC, Spinal Primary Surgeon: Charles Ocampo Anesthesia Provider: Russel Gutierrez Social Security Benefits Interviewer: Terrie Rivas Social Security Benefits Interviewer: Chloe Villalobos EBL in mLs: 300 Complications: None Condition: Good
--- NOTE | 2016-12-15 18:25 | OR ---
DATE OF OPERATION: 12/12/2016 SURGEON: Charles Ocampo MD OPERATION PERFORMED: Left total knee arthroplasty. PREOPERATIVE DIAGNOSIS: Left knee osteoarthrosis. POSTOPERATIVE DIAGNOSIS: Left knee osteoarthrosis. ANESTHESIA: Local MAC with spinal. ANESTHESIA PROVIDER: Russel Gutierrez CRNA. CERTIFIED ENERGY MANAGER: Terrie Rivas PA-C and Chloe Villalobos LPN. ESTIMATED BLOOD LOSS: 300 mL COMPLICATIONS: None. CONDITION: Stable. IMPLANTS: 1. Leonardo size 4 PS femur. 2. Leonardo size 3 Wheeler tibial baseplate. 3. Leonardo size 3, 9 mm PS X3 polyethylene. 4. Calhan 29 x 9 mm asymmetric patella. DESCRIPTION OF PROCEDURE: The patient was identified in the preop holding area. Proper site was marked and identified by the surgeon. The patient was taken back to the operating theater. After adequate anesthesia, the patient's left lower extremity had a nonsterile tourniquet applied and it was then sterilely prepped and draped in the usual sterile fashion. OR timeout was performed. The patient received 2 g IV Ancef. At this time, left lower extremity was exsanguinated. Tourniquet was insufflated to 300 mmHg. Standard medial parapatellar incision was made. Medial parapatellar arthrotomy was created. Deep fibers of the MCL were raised and anterior fat pad was resected. At this time, attention was turned to the patella. Patella measured 22, it was resected to a 13 for a 29 x 9 mm patella. Drill holes were then drilled and found to be in adequate position. The drill was then drilled in the distal femur and the intramedullary distal femoral cutting guide was then placed. 8 mm was resected off the distal femur and was found to be an adequate resection. Sizing guide was placed. It was found to be a size 4 PS femur that was shown on the implant record at the beginning of this dictation. The drill holes were drilled for the epicondylar axis using Whitesides line and epicondyles as reference. At this time, the 4-in-1 cutting block was placed. An anterior posterior and anterior and posterior chamfer cuts were then completed. The correct size box cut was then placed and the box cut was completed and found to be an adequate resection. Attention was turned to the tibia. The posterior medial lateral retractors were placed. The extramedullary tibial guide was placed. It was placed in the old footprint of the ACL. It was aligned with the center of the ankle and 0 degrees of slope, 9 mm was then resected off the unaffected lateral side. There was found to be an acceptable reduction. At this time, posterior osteophytes were removed along with medial and lateral meniscus. A trial implant was placed with a correct sized tibia that was mentioned at the beginning of the dictation. A 9 mm trial spacer was placed and a 9 mm PS X3 polyethylene was then placed. The patient's knee was brought through range of motion. The patella was tracking centrally and was stable to varus and valgus stress. Alignment was found to be roughly at 0 degrees. At this time, cement was mixed on the back table. The tibia was stamped and drilled in proper rotation. All cut surfaces were irrigated with pulse lavage irrigation with Ancef and then completely dried. Once this was completed, then the cement was ready. The universal tibial base plate was cemented in place. Next, the 4 PS femur cemented into place and the 9 mm PS X3 polyethylene was placed. The patient's knee was brought into full extension. Excess cement was removed. The patella was then cemented in place at this time. Tourniquet was deflated. One liter dilute Betadine solution was irrigated through the knee along with 3 L of pulse lavage irrigation with Ancef. Periarticular injection was then completed. The patient's knee was brought through a range of motion. Once the cement had time to set up and it was found to be stable to varus valgus stress, the patella was tracking centrally with full range of motion. At this time, a #2 barbed suture was used for closure of the medial parapatellar arthrotomy. Topical tranexamic acid was placed. 2-0 Vicryl was used subcutaneously, a running 3-0 Monocryl was used subcuticularly. The patient tolerated the procedure well and was sent to the PACU in stable condition. JULIA /[id number]
--- NOTE | 2016-12-20 08:43 | PCM.SURGPN ---
- General Info Date of Service: 12/13/16 POD#: 1 Functional Status: Reports: Pain Controlled, Tolerating Diet, Ambulating, Urinating, Other (The pt remains on O2 and states she has access to O2 at home.) - Patient Data Vitals - Most Recent: Last Vital Signs Temp 98.1 F 12/13/16 11:14 Pulse 79 12/13/16 11:14 Resp 14 12/13/16 11:14 BP 130/54 L 12/13/16 11:14 Pulse Ox 90 L 12/13/16 11:14 Weight - Most Recent: 221 lb 1.6 oz Med Orders - Current: Current Medications Discontinued Medications Albuterol (Proventil Neb Soln) 2.5 mg NEB Q4HRRT PRN PRN Reason: shortness of breath Last Admin: 12/13/16 07:56 Dose: 2.5 mg Amlodipine Besylate (Norvasc) 10 mg PO DAILY [facility] Last Admin: 12/13/16 08:15 Dose: 10 mg Aspirin (Ecotrin) 325 mg PO DAILY [facility] Last Admin: 12/13/16 08:15 Dose: 325 mg Bisacodyl (Dulcolax) 5 mg PO DAILY PRN PRN Reason: Constipation Bupivacaine HCl (Marcaine 0.25%) Confirm Administered Dose 30 ml .ROUTE .STK- MED ONE Stop: 12/12/16 06:07 Last Admin: 12/12/16 08:22 Dose: 30 ml Cefazolin Sodium (Ancef) Confirm Administered Dose 2 gm .ROUTE .STK-MED ONE Stop: 12/12/16 06:06 Last Admin: 12/12/16 08:17 Dose: 2 gm Cefazolin Sodium (Ancef) Confirm Administered Dose 2 gm .ROUTE .STK-MED ONE Stop: 12/12/16 07:39 Colesevelam HCl (Welchol) 625 mg PO BID [facility] Last Admin: 12/13/16 08:16 Dose: 625 mg Morphine Sulfate 8 mg/Epinephrine HCl 0.3 mg/Cefuroxime Sodium 750 mg/Ketorolac Tromethamine 30 mg/Sodium Chloride 27.9 ml 0 mg .XX ONETIME ONE Stop: 12/12/16 07:41 Last Admin: 12/12/16 12:15 Dose: Not Given Cyclobenzaprine HCl (Flexeril) 5 mg PO TID PRN PRN Reason: Spasms Last Admin: 12/13/16 11:29 Dose: 5 mg Diphenhydramine HCl (Benadryl) 25 mg IVPUSH ONETIME ONE Stop: 12/12/16 11:59 Last Admin: 12/12/16 12:09 Dose: 25 mg Diphenhydramine HCl (Benadryl) 25 mg IVPUSH Q4H PRN PRN Reason: Itching Last Admin: 12/12/16 20:12 Dose: 25 mg Docusate Sodium (Colace) 100 mg PO BID [facility] Last Admin: 12/13/16 08:15 Dose: 100 mg Ephedrine Sulfate (Ephedrine Sulfate) Confirm Administered Dose 50 mg .ROUTE .STK-MED ONE Stop: 12/12/16 07:59 Famotidine (Pepcid) 20 mg PO Q12H [facility] Last Admin: 12/13/16 08:15 Dose: 20 mg Fentanyl (Sublimaze) Confirm Administered Dose 100 mcg .ROUTE .STK-MED ONE Stop: 12/12/16 07:12 Fentanyl (Sublimaze) 50 mcg IVPUSH Q5M PRN PRN Reason: PAIN Stop: 12/12/16 12:00 Fluconazole (Diflucan) 150 mg PO ONETIME ONE Stop: 12/13/16 10:01 Last Admin: 12/13/16 11:29 Dose: 150 mg Gabapentin (Neurontin) 100 - 200 mg PO QAM [facility] Last Admin: 12/13/16 08:14 Dose: 100 mg Gabapentin (Neurontin) 300 mg PO BEDTIME [facility] Last Admin: 12/12/16 22:18 Dose: 300 mg Gemfibrozil (Lopid) 300 mg PO BID [facility] Last Admin: 12/13/16 08:18 Dose: 300 mg Lactated Ringer's (Ringers, Lactated) 1,000 mls @ 125 mls/hr IV ASDIRECTED [facility] Last Admin: 12/12/16 06:30 Dose: 125 mls/hr Lactated Ringer's (Ringers, Lactated) Confirm Administered Dose 1,000 mls @ as directed .ROUTE .STK-MED ONE Stop: 12/12/16 07:41 Cefazolin Sodium/Dextrose 2 gm (/ Premix) 50 mls @ 100 mls/hr IV Q8H [facility] Stop: 12/13/16 07:29 Last Admin: 12/13/16 06:10 Dose: 100 mls/hr Iodine (Iodine 2% Mild Tincture) Confirm Administered Dose 30 ml .ROUTE .STK- MED ONE Stop: 12/12/16 06:06 Last Admin: 12/12/16 08:13 Dose: 18 ml Ketorolac Tromethamine (Toradol) 15 mg IVPUSH Q8H PRN PRN Reason: Pain Stop: 12/13/16 09:31 Last Admin: 12/13/16 06:08 Dose: 15 mg Levothyroxine Sodium (Levothyroxine) 75 mcg PO ACBREAKFAST SAL Last Admin: 12/13/16 06:09 Dose: 75 mcg Lidocaine/Sodium Bicarbonate (Buffered Lidocaine 1% In Ns 8.4%) 0.25 ml IV ONETIME PRN PRN Reason: Prior to IV Start Last Admin: 12/12/16 06:30 Dose: 0.25 ml Magnesium Hydroxide (Milk Of Magnesia) 30 ml PO BID PRN PRN Reason: Constipation Midazolam HCl (Versed 1 Mg/Ml) Confirm Administered Dose 2 mg .ROUTE .STK-MED ONE Stop: 12/12/16 07:13 Miscellaneous Information (Remove Patch) 1 ea TRDERM ONETIME ONE Stop: 12/16/16 14:01 Morphine Sulfate (Duramorph Pf) Confirm Administered Dose 10 mg .ROUTE .STK-MED ONE Stop: 12/12/16 07:13 Morphine Sulfate (Morphine) 2 mg IVPUSH Q2H PRN PRN Reason: Breakthrough Pain Naloxone HCl (Narcan) 0.1 mg IVPUSH Q5M PRN PRN Reason: Oversedation Stop: 12/12/16 09:46 Ondansetron HCl (Zofran) Confirm Administered Dose 4 mg .ROUTE .STK-MED ONE Stop: 12/12/16 07:12 Ondansetron HCl (Zofran) 4 mg IVPUSH Q6H PRN PRN Reason: Nausea/Vomiting Last Admin: 12/13/16 08:34 Dose: 4 mg Oxycodone/Acetaminophen (Percocet 325-5 Mg) 1 - 2 tab PO Q4H PRN PRN Reason: Pain Last Admin: 12/13/16 11:28 Dose: 2 tab Propofol (Diprivan 20 Ml) Confirm Administered Dose 200 mg .ROUTE .STK-MED ONE Stop: 12/12/16 07:12 Propofol (Diprivan 20 Ml) Confirm Administered Dose 200 mg .ROUTE .STK-MED ONE Stop: 12/12/16 08:11 Scopolamine (Transderm-Scop) 1.5 mg TOP ONETIME ONE Stop: 12/13/16 13:43 Last Admin: 12/13/16 14:02 Dose: 1.5 mg Senna (Senna) 8.6 mg PO BID PRN PRN Reason: Constipation Sodium Chloride (Saline Flush) 10 ml FLUSH ASDIRECTED PRN PRN Reason: Keep Vein Open Tranexamic Acid (Cyklokapron) Confirm Administered Dose 1,000 mg .ROUTE .STK- MED ONE Stop: 12/12/16 06:06 Last Admin: 12/12/16 08:27 Dose: 1,000 mg Trazodone HCl (Trazodone) 50 mg PO BEDTIME SAL Last Admin: 12/12/16 22:16 Dose: 50 mg Vancomycin HCl (Vancomycin) Confirm Administered Dose 1 gm .ROUTE .STK-MED ONE Stop: 12/12/16 06:47 Last Admin: 12/12/16 08:24 Dose: 1 gm - Exam Wound/Incisions: Dressing Dry and Intact General: Alert, Cooperative, No Acute Distress Lungs: Normal Respiratory Effort Extremities: Other (NVS intact for BLE. Sheila's negative for BLE. ) - Problem List Review Problem List Initiated/Reviewed/Updated: Yes - Assessment Assessment (Free Text/Narrative):: POD#1 - left TKA - Plan Plan (Free Text/Narrative):: 1. Hgb 11.6 today. 2. Home O2 eval. F/U with PCP re: home O2 use. 3. 325mg ASA BID. Frequent mobility. TEDs. 4. Discharge to home today. The pt's case was discussed with Dr. Ocampo.
--- NOTE | 2016-12-20 08:45 | PCM.DCSUM1 ---
Discharge Summary - Hospital Course Brief History: Jeana is a 66 yo female who underwent left TKA with Dr. Ocampo on 12-12-2016. The procedure was completed under spinal anesthesia. The pt tolerated the procedure well and was admitted to the Medical-Surgical Unit. Medical management was provided by the Hospitalist service. The pt's Hospital course was remarkable for inability to wean from O2 per [place]. THe Hospitalist service evaluated the pt and monitored O2 use. The pt's Hgb on POD#1 was 116. On POD#1, 325mg BID was initiated for VTE prophylaxis. SCDs and TEDs were also ordered. A Mepilex dressing was placed at the incision site at the time of surgery and remained clean and dry. The pt participated in P.T. and O.T. and progressed well. The pt was allowed to WBAT. On POD#1, the pt was deemed appropriate to discharge to home. - Discharge Data Discharge Date: 12/13/16 Discharge Disposition: Home, Self-Care 01 Condition: Good - Patient Summary/Data Operative Procedure(s) Performed: left total knee arthroplasty Consults: Consultations 12/12/16 08:50 Consult to Case Management [CONS] Routine Consult to Physician [CONS] Routine OT Evaluation and Treatment [CONS] Routine 12/12/16 08:54 PT Evaluation and Treatment [CONS] Routine - Patient Instructions Diet: Usual Diet as Tolerated Activity: Apply Ice, As Tolerated, Elevate Extremity, Full Weight Bearing Driving: Do Not Drive Showering/Bathing: May Shower Wound/Incision Care: Keep Operative Site/Wound Site Clean and Dry, Do NOT Change Dressing Notify Provider of: Fever, Increased Pain, Swelling and Redness, Drainage, Nausea and/or Vomiting Other/Special Instructions: Please get up and moving around every hour while awake. This helps to prevent blood clots. Please take 325mg aspirin twice daily - this also helps to prevent blood clots. The medication is being used for blood clot prevention and not for pain control, so please use the medication twice daily as directed. Please wear the IVETTE hose during the day and remove them at night. Please schedule for P.T. Complete the P.T. exercises and stretches that were instructed in the Hospital. Please use the pain medication and muscle relaxant as needed. The medication may cause drowsiness and/or constipation. You could use a stool softener like docusate sodium or Colace 100mg twice daily and/or a laxative like Miralax daily for constipation. Contact your primary care provider for further instructions if you are constipated. Please schedule an appointment with your primary care provider for 'routine post-op care'. Use the incentive spirometer often. Please place ice to the knee often. Please elevate the limb to decrease swelling. Keep the Mepilex dressing in place until follow-up. Please call [phone] with questions or concerns. - Discharge Plan Prescriptions/Med Rec: Acetaminophen/oxyCODONE [Percocet 325-5 MG] 1 - 2 tab PO Q4H PRN #60 tablet PRN Reason: Pain Aspirin 325 mg PO BID #60 tablet Cyclobenzaprine [Flexeril] 5 mg PO BID PRN #20 tablet PRN Reason: Spasms Home Medications: Home Meds Docusate Sodium [Colace] 1 tab PO BEDTIME 08/30/13 [History] Levothyroxine Sodium [Synthroid] 75 mcg PO DAILY 08/30/13 [History] Colesevelam HCl [Welchol] 625 mg PO BID 04/24/14 [History] Gemfibrozil 300 mg PO BID 08/13/16 [History] Gabapentin [Neurontin] 100 - 200 mg PO QAM 12/08/16 [History] Gabapentin [Neurontin] 300 mg PO BEDTIME 12/08/16 [History] Relafen. 500 mg PO BID 12/08/16 [History] amLODIPine [Norvasc] 10 mg PO DAILY 12/08/16 [History] traZODone 50 mg PO BEDTIME 12/08/16 [History] Acetaminophen/oxyCODONE [Percocet 325-5 MG] 1 - 2 tab PO Q4H PRN #60 tablet [Rx] Aspirin 325 mg PO BID #60 tablet 12/13/16 [Rx] Cyclobenzaprine [Flexeril] 5 mg PO BID PRN #20 tablet 12/13/16 [Rx] Patient Handouts: Total Knee Replacement, Care After, [id number], Total Knee Replacement, [id number], Aspirin, ASA oral tablets, Knee Rehabilitation Guidelines Following Surgery Referrals: Terrie Rivas PA-C [Physician [employer] Engineer] - 12/20/16 9:30 am (Please follow up Terrie Rivas on at 0930.) Giles Mayorga MD [Physician] - 12/15/16 1:00 pm (Please follow up with Dr. Mayorga on Dec.15 at 1300. ) - Patient Data Vitals - Most Recent: Last Vital Signs Temp 98.1 F 12/13/16 11:14 Pulse 79 12/13/16 11:14 Resp 14 12/13/16 11:14 BP 130/54 L 12/13/16 11:14 Pulse Ox 90 L 12/13/16 11:14 Weight - Most Recent: 221 lb 1.6 oz Med Orders - Current: Current Medications Discontinued Medications Albuterol (Proventil Neb Soln) 2.5 mg NEB Q4HRRT PRN PRN Reason: shortness of breath Last Admin: 12/13/16 07:56 Dose: 2.5 mg Amlodipine Besylate (Norvasc) 10 mg PO DAILY [facility] Last Admin: 12/13/16 08:15 Dose: 10 mg Aspirin (Ecotrin) 325 mg PO DAILY [facility] Last Admin: 12/13/16 08:15 Dose: 325 mg Bisacodyl (Dulcolax) 5 mg PO DAILY PRN PRN Reason: Constipation Bupivacaine HCl (Marcaine 0.25%) Confirm Administered Dose 30 ml .ROUTE .STK- MED ONE Stop: 12/12/16 06:07 Last Admin: 12/12/16 08:22 Dose: 30 ml Cefazolin Sodium (Ancef) Confirm Administered Dose 2 gm .ROUTE .STK-MED ONE Stop: 12/12/16 06:06 Last Admin: 12/12/16 08:17 Dose: 2 gm Cefazolin Sodium (Ancef) Confirm Administered Dose 2 gm .ROUTE .STK-MED ONE Stop: 12/12/16 07:39 Colesevelam HCl (Welchol) 625 mg PO BID [facility] Last Admin: 12/13/16 08:16 Dose: 625 mg Morphine Sulfate 8 mg/Epinephrine HCl 0.3 mg/Cefuroxime Sodium 750 mg/Ketorolac Tromethamine 30 mg/Sodium Chloride 27.9 ml 0 mg .XX ONETIME ONE Stop: 12/12/16 07:41 Last Admin: 12/12/16 12:15 Dose: Not Given Cyclobenzaprine HCl (Flexeril) 5 mg PO TID PRN PRN Reason: Spasms Last Admin: 12/13/16 11:29 Dose: 5 mg Diphenhydramine HCl (Benadryl) 25 mg IVPUSH ONETIME ONE Stop: 12/12/16 11:59 Last Admin: 12/12/16 12:09 Dose: 25 mg Diphenhydramine HCl (Benadryl) 25 mg IVPUSH Q4H PRN PRN Reason: Itching Last Admin: 12/12/16 20:12 Dose: 25 mg Docusate Sodium (Colace) 100 mg PO BID [facility] Last Admin: 12/13/16 08:15 Dose: 100 mg Ephedrine Sulfate (Ephedrine Sulfate) Confirm Administered Dose 50 mg .ROUTE .STK-MED ONE Stop: 12/12/16 07:59 Famotidine (Pepcid) 20 mg PO Q12H [facility] Last Admin: 12/13/16 08:15 Dose: 20 mg Fentanyl (Sublimaze) Confirm Administered Dose 100 mcg .ROUTE .STK-MED ONE Stop: 12/12/16 07:12 Fentanyl (Sublimaze) 50 mcg IVPUSH Q5M PRN PRN Reason: PAIN Stop: 12/12/16 12:00 Fluconazole (Diflucan) 150 mg PO ONETIME ONE Stop: 12/13/16 10:01 Last Admin: 12/13/16 11:29 Dose: 150 mg Gabapentin (Neurontin) 100 - 200 mg PO QAM [facility] Last Admin: 12/13/16 08:14 Dose: 100 mg Gabapentin (Neurontin) 300 mg PO BEDTIME [facility] Last Admin: 12/12/16 22:18 Dose: 300 mg Gemfibrozil (Lopid) 300 mg PO BID [facility] Last Admin: 12/13/16 08:18 Dose: 300 mg Lactated Ringer's (Ringers, Lactated) 1,000 mls @ 125 mls/hr IV ASDIRECTED [facility] Last Admin: 12/12/16 06:30 Dose: 125 mls/hr Lactated Ringer's (Ringers, Lactated) Confirm Administered Dose 1,000 mls @ as directed .ROUTE .STK-MED ONE Stop: 12/12/16 07:41 Cefazolin Sodium/Dextrose 2 gm (/ Premix) 50 mls @ 100 mls/hr IV Q8H [facility] Stop: 12/13/16 07:29 Last Admin: 12/13/16 06:10 Dose: 100 mls/hr Iodine (Iodine 2% Mild Tincture) Confirm Administered Dose 30 ml .ROUTE .STK- MED ONE Stop: 12/12/16 06:06 Last Admin: 12/12/16 08:13 Dose: 18 ml Ketorolac Tromethamine (Toradol) 15 mg IVPUSH Q8H PRN PRN Reason: Pain Stop: 12/13/16 09:31 Last Admin: 12/13/16 06:08 Dose: 15 mg Levothyroxine Sodium (Levothyroxine) 75 mcg PO ACBREAKFAST SAL Last Admin: 12/13/16 06:09 Dose: 75 mcg Lidocaine/Sodium Bicarbonate (Buffered Lidocaine 1% In Ns 8.4%) 0.25 ml IV ONETIME PRN PRN Reason: Prior to IV Start Last Admin: 12/12/16 06:30 Dose: 0.25 ml Magnesium Hydroxide (Milk Of Magnesia) 30 ml PO BID PRN PRN Reason: Constipation Midazolam HCl (Versed 1 Mg/Ml) Confirm Administered Dose 2 mg .ROUTE .STK-MED ONE Stop: 12/12/16 07:13 Miscellaneous Information (Remove Patch) 1 ea TRDERM ONETIME ONE Stop: 12/16/16 14:01 Morphine Sulfate (Duramorph Pf) Confirm Administered Dose 10 mg .ROUTE .STK-MED ONE Stop: 12/12/16 07:13 Morphine Sulfate (Morphine) 2 mg IVPUSH Q2H PRN PRN Reason: Breakthrough Pain Naloxone HCl (Narcan) 0.1 mg IVPUSH Q5M PRN PRN Reason: Oversedation Stop: 12/12/16 09:46 Ondansetron HCl (Zofran) Confirm Administered Dose 4 mg .ROUTE .STK-MED ONE Stop: 12/12/16 07:12 Ondansetron HCl (Zofran) 4 mg IVPUSH Q6H PRN PRN Reason: Nausea/Vomiting Last Admin: 12/13/16 08:34 Dose: 4 mg Oxycodone/Acetaminophen (Percocet 325-5 Mg) 1 - 2 tab PO Q4H PRN PRN Reason: Pain Last Admin: 12/13/16 11:28 Dose: 2 tab Propofol (Diprivan 20 Ml) Confirm Administered Dose 200 mg .ROUTE .STK-MED ONE Stop: 12/12/16 07:12 Propofol (Diprivan 20 Ml) Confirm Administered Dose 200 mg .ROUTE .STK-MED ONE Stop: 12/12/16 08:11 Scopolamine (Transderm-Scop) 1.5 mg TOP ONETIME ONE Stop: 12/13/16 13:43 Last Admin: 12/13/16 14:02 Dose: 1.5 mg Senna (Senna) 8.6 mg PO BID PRN PRN Reason: Constipation Sodium Chloride (Saline Flush) 10 ml FLUSH ASDIRECTED PRN PRN Reason: Keep Vein Open Tranexamic Acid (Cyklokapron) Confirm Administered Dose 1,000 mg .ROUTE .STK- MED ONE Stop: 12/12/16 06:06 Last Admin: 12/12/16 08:27 Dose: 1,000 mg Trazodone HCl (Trazodone) 50 mg PO BEDTIME [facility] Last Admin: 12/12/16 22:16 Dose: 50 mg Vancomycin HCl (Vancomycin) Confirm Administered Dose 1 gm .ROUTE .STK-MED ONE Stop: 12/12/16 06:47 Last Admin: 12/12/16 08:24 Dose: 1 gm *Q Meaningful Use (DIS) - VTE *Q VTE Criteria *Q: - Stroke *Q Stroke Criteria *Q: - AMI *Q AMI Criteria *Q:
== END 2016-12-13 15:45 | disposition home or self-care (01) | DRG 470 ==
LOC: JD.MS 06:00
PROVIDERS: ADMIT Orthopaedic Surgery; ATTEND Orthopaedic Surgery
PROC: 0SRD0J9 Replacement of Left Knee Joint with Synthetic Substitute, Cemented, Open Approach (ICD-10-PCS; principal; 2016-12-12)
DX: M17.12 Unilateral primary osteoarthritis, left knee (principal); I10 Essential (primary) hypertension; E78.2 Mixed hyperlipidemia; E03.9 Hypothyroidism, unspecified; G25.81 Restless legs syndrome; M79.7 Fibromyalgia; K21.9 Gastro-esophageal reflux disease without esophagitis; R09.02 Hypoxemia; G47.33 Obstructive sleep apnea (adult) (pediatric); Z87.891 Personal history of nicotine dependence; Z79.82 Long term (current) use of aspirin; Z79.899 Other long term (current) drug therapy
CPT/HCPCS: 01402; 36415; 71020; 71020-26; 73560-26-LT; 73560-LT; 80053; 85025; 86140; 87641; 94664; 94762; 97110-GP; 97116-GP; 97161-GP; 97165-GO; 97535-GO; A9270-GY; C1713; C1776; J0171; J0690; J0697; J1200; J1885; J2250; J2270; J2405; J2704; J3010; J3370; J3490; J7120

== ENCOUNTER 2018-07-07 15:58 | Emergency (ER) | payer MEDICARE, BC ==
[2018-07-07 16:08] VITALS: BP 155/71
--- NOTE | 2018-07-07 16:47 | EDM.PDOC ---
ED HPI GENERAL MEDICAL PROBLEM - General Chief Complaint: Neurological Problem Stated Complaint: [facility] Time Seen by Provider: 07/07/18 16:05 Source of Information: Reports: Patient, RN Notes Reviewed History Limitations: Reports: No Limitations - Related Data Allergies Allergy/AdvReac Type Severity Reaction Status Date / Time amoxicillin trihydrate Allergy Severe Hives Verified 07/07/18 16:03 [From Augmentin] doxycycline Allergy Severe Swelling Verified 07/07/18 16:03 potassium clavulanate Allergy Severe Hives Verified 07/07/18 16:03 [From Augmentin] [id number]-Urs-Uzx Reductase AdvReac Muscle Verified 07/07/18 16:03 Inhibitor Aches Home Meds: Home Meds Docusate Sodium [Colace] 100 mg PO BEDTIME 08/30/13 [History] Levothyroxine Sodium [Synthroid] 112 mcg PO DAILY 08/30/13 [History] Colesevelam HCl [Welchol] 625 mg PO BID 04/24/14 [History] Gemfibrozil 300 mg PO BID 08/13/16 [History] Gabapentin [Neurontin] 300 mg PO TID 12/08/16 [History] Relafen. 500 mg PO BID 12/08/16 [History] amLODIPine [Norvasc] 10 mg PO DAILY 12/08/16 [History] Aspirin 81 mg PO DAILY 07/07/18 [History] Calcium Carbonate/Vitamin D3 [Calcium 600 + Vit D 200] 1 tab PO DAILY 07/07/18 [ History] Fluconazole 150 mg PO DAILY 07/07/18 [History] L Acidophil/B Lactis/B Longum [Florajen3] 400 mg PO DAILY 07/07/18 [History] Magnesium Oxide [Magnesium] 400 mg PO DAILY 07/07/18 [History] Meclizine [Antivert] 1 tab PO Q6H PRN #20 tab 07/07/18 [Rx] Metoclopramide HCl [Reglan] 10 mg PO QID PRN 07/07/18 [History] Mirtazapine 15 mg PO DAILY 07/07/18 [History] Multivitamins [Tab-A-Ashly] 1 tab PO DAILY 07/07/18 [History] Niacin 500 mg PO DAILY 07/07/18 [History] Omeprazole 20 mg PO DAILY 07/07/18 [History] Ondansetron [Zofran ODT] 1 tab PO Q8H PRN #10 tab.dis 07/07/18 [Rx] Ubidecarenone [Co Q-10] 10 mg PO DAILY 07/07/18 [History] fentaNYL [Duragesic] 1 patch TD Q72H 07/07/18 [History] Past Medical History HEENT History: Reports: None Other HEENT History: Wears glasses Cardiovascular History: Reports: High Cholesterol, Hypertension Respiratory History: Reports: None Gastrointestinal History: Reports: Diverticulosis, GERD Genitourinary History: Reports: None [employer] History: Reports: Other (See Below) Other [employer] History: Partial removal of R ovary Musculoskeletal History: Reports: Fibromyalgia, Osteoarthritis Other Musculoskeletal History: Restless leg syndrome Neurological History: Reports: None Psychiatric History: Reports: None Endocrine/Metabolic History: Reports: Hypothyroidism Hematologic History: Reports: None Immunologic History: Reports: None Oncologic (Cancer) History: Reports: None Dermatologic History: Reports: None - Past Surgical History Head Surgeries/Procedures: Reports: None HEENT Surgical History: Reports: None Cardiovascular Surgical History: Reports: None Respiratory Surgical History: Reports: None GI Surgical History: Reports: Cholecystectomy, Other (See Below) Other GI Surgeries/Procedures: Colon resection Female Surgical History: Reports: None Endocrine Surgical History: Reports: None Neurological Surgical History: Reports: None Musculoskeletal Surgical History: Reports: None Oncologic Surgical History: Reports: None Dermatological Surgical History: Reports: None Social & Family History - Tobacco Use Smoking Status *Q: Former Smoker Used Tobacco, but Quit: Yes Month/Year Tobacco Last Used: 12/2007 - Caffeine Use Caffeine Use: Reports: Coffee - Alcohol Use Days Per Week of Alcohol Use: 1 Number of Drinks Per Day: 1 Total Drinks Per Week: 1 - Recreational Drug Use Recreational Drug Use: No Course - Vital Signs Last Recorded V/S: Last Vital Signs Temp 36.5 C 07/07/18 16:04 Pulse 75 07/07/18 16:04 Resp 18 07/07/18 16:04 BP 155/71 H 07/07/18 16:04 Pulse Ox 93 L 07/07/18 16:04 - Re-Assessments/Exams Free Text/Narrative Re-Assessment/Exam: 07/07/18 16:38 Clinically, the patient is suffering from BPPV. She has meclizine at home, but will need more. I will prescribe additional meclizine as well as Zofran. I will refer her to ENT for determination of which of the 6 semicircular canals is affected, and from there, she can be treated by PT. The patient states, however , that she does not have the ability to get to [place]. I am told that an ENT visits the [facility], although I don't know when. I am recommending that the patient contact the office of her PCP, Dr. Quintana, this coming Monday, , to see if he can refer the patient to an ENT here in [place]. Departure - Departure Time of Disposition: 16:40 Disposition: Home, Self-Care 01 Condition: Fair Clinical Impression: BPPV (benign paroxysmal positional vertigo) - Discharge Information *PRESCRIPTION DRUG MONITORING PROGRAM REVIEWED*: Not Applicable *COPY OF PRESCRIPTION DRUG MONITORING REPORT IN PATIENT SHIRAZ: Not Applicable Referrals: Alejo Sharma MD [Ordering Only Provider] - Frank Quintana MD [Physician] - Additional Instructions: You were seen in the emergency room for vertigo with nausea that developed this morning. 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 BPPV can be definitively treated with canalith repositioning maneuvers by a physical therapist, but first you need to find out which of the 6 semicircular canals is blocked. This is done by an ENT. Until that time, you may take meclizine to help with your dizziness symptoms and Zofran to help with your nausea. Prescriptions for meclizine and Zofran have been sent to the [facility], [facility] [employer] [facility]. Take one tablet of meclizine up to every 6 hours, as needed for dizziness. Dissolve one tablet of Zofran on your tongue up to every 8 hours, as needed for nausea/vomiting. We recommend that you follow-up with your PCP, Dr. Quintana, this coming Monday , 07/09/2018, to see if he can refer you to an ENT here in [place]. If he cannot, please follow-up with the ENT Dr. Alejo Sharma in [place] at the next available appointment. He will then refer you to physical therapy. If any other problems, please do not hesitate to return to the ER.
--- NOTE | 2018-07-07 16:58 | EDM.PDOC ---
ED HPI GENERAL MEDICAL PROBLEM - General Chief Complaint: Neurological Problem Stated Complaint: [facility] Time Seen by Provider: 07/07/18 16:05 Source of Information: Reports: Patient, RN Notes Reviewed History Limitations: Reports: No Limitations - History of Present Illness INITIAL COMMENTS - FREE TEXT/NARRATIVE: The patient states that she woke up around 07:00 this morning with the sensation that the room was spinning. Her symptoms improve if she remains still , and worsen with movement. She took 2 tablets of left-over meclizine around 12 noon, but her symptoms only got worse, and she now has associated nausea. She states that she cannot walk a straight line due to the room spinning. She denies feeling lightheaded. No other neurologic symptoms, such as tingling, numbness, or weakness. She denies associated chest pain, dyspnea, or palpitations. No recent diarrhea. No recent urinary symptoms. She denies having tinnitus. No decreased hearing or ear pain. The patient states that she has had vertigo in the past, perhaps 5 to 10 years ago, and that the meclizine that she took today was prescribed back then. She states that has not been previously evaluated by an ENT. EMS gave the patient Brenda en route to the ED. The patient's PCP is Dr. Quintana. - Related Data Allergies Allergy/AdvReac Type Severity Reaction Status Date / Time amoxicillin trihydrate Allergy Severe Hives Verified 07/07/18 16:03 [From Augmentin] doxycycline Allergy Severe Swelling Verified 07/07/18 16:03 potassium clavulanate Allergy Severe Hives Verified 07/07/18 16:03 [From Augmentin] Fhqnced-Myw-Jud Reductase AdvReac Muscle Verified 07/07/18 16:03 Inhibitor Aches Home Meds: Home Meds Docusate Sodium [Colace] 100 mg PO BEDTIME 08/30/13 [History] Levothyroxine Sodium [Synthroid] 112 mcg PO DAILY 08/30/13 [History] Colesevelam HCl [Welchol] 625 mg PO BID 04/24/14 [History] Gemfibrozil 300 mg PO BID 08/13/16 [History] Gabapentin [Neurontin] 300 mg PO TID 12/08/16 [History] Relafen. 500 mg PO BID 12/08/16 [History] amLODIPine [Norvasc] 10 mg PO DAILY 12/08/16 [History] Aspirin 81 mg PO DAILY 07/07/18 [History] Calcium Carbonate/Vitamin D3 [Calcium 600 + Vit D 200] 1 tab PO DAILY 07/07/18 [ History] Fluconazole 150 mg PO DAILY 07/07/18 [History] L Acidophil/B Lactis/B Longum [Florajen3] 400 mg PO DAILY 07/07/18 [History] Magnesium Oxide [Magnesium] 400 mg PO DAILY 07/07/18 [History] Meclizine [Antivert] 1 tab PO Q6H PRN #20 tab 07/07/18 [Rx] Metoclopramide HCl [Reglan] 10 mg PO QID PRN 07/07/18 [History] Mirtazapine 15 mg PO DAILY 07/07/18 [History] Multivitamins [Tab-A-Ashly] 1 tab PO DAILY 07/07/18 [History] Niacin 500 mg PO DAILY 07/07/18 [History] Omeprazole 20 mg PO DAILY 07/07/18 [History] Ondansetron [Zofran ODT] 1 tab PO Q8H PRN #10 tab.dis 07/07/18 [Rx] Ubidecarenone [Co Q-10] 10 mg PO DAILY 07/07/18 [History] fentaNYL [Duragesic] 1 patch TD Q72H 07/07/18 [History] Past Medical History HEENT History: Reports: 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 Fibromyalgia.) Endocrine/Metabolic History: Reports: Hypothyroidism, Obesity/BMI 30+ - Past Surgical History HEENT Surgical History: Reports: Cataract Surgery, Oral Surgery (wisdom teeth extraction), Tonsillectomy GI Surgical History: Reports: Appendectomy, Cholecystectomy, Other (See Below) ( Hemicolectomy) Female Surgical History: Reports: D&C (x 1), Other (See Below) (Right ovarian cystectomy) Musculoskeletal Surgical History: Reports: Knee Replacement (left) Social & Family History - Tobacco Use Smoking Status *Q: Former Smoker Years of Tobacco use: 40 Packs/Tins Daily: 1.5 Month/Year Tobacco Last Used: Quit 2007 - Caffeine Use Caffeine Use: Reports: Coffee - Alcohol Use Alcohol Use History: Yes Days Per Week of Alcohol Use: 1 Number of Drinks Per Day: 1 Total Drinks Per Week: 1 Alcohol Use Frequency: Socially - Recreational Drug Use Recreational Drug Use: No - Living Situation & Occupation Living situation: Reports: , Alone Occupation: Retired ED ROS GENERAL - Review of Systems Review Of Systems: ROS reveals no pertinent complaints other than HPI. ED EXAM, DIZZINESS - Physical Exam Exam: See Below Exam Limited By: No Limitations General Appearance: Alert, WD/WN, No Apparent Distress Eye Exam: Bilateral Eye: EOMI, Normal Inspection Ears: Normal External Exam, Normal Canal, Hearing Grossly Normal, Normal TMs Nose: Normal Inspection, Normal Mucosa, No Blood Throat/Mouth: Normal Inspection, Normal Lips, Normal Teeth, Normal Gums, Normal Oropharynx, Normal Voice, No Airway Compromise Head Exam: Atraumatic, Normocephalic Vertigo: worsens with head to L Neck: Normal Inspection, Full Range of Motion Respiratory/Chest: No Respiratory Distress, Lungs Clear, Normal Breath Sounds, No Accessory Muscle Use Cardiovascular: Normal Peripheral Pulses, Regular Rate, Rhythm, No Edema, No Gallop, No JVD, No Murmur, No Rub GI/Abdominal: Normal Bowel Sounds, Soft, Non-Tender, No Organomegaly, No Distention, No Abnormal Bruit, No Mass (Female) Exam: Normal External Exam, Normal Speculum Exam, Normal Bimanual Exam Rectal (Female) Exam: Normal Exam, Normal Rectal Tone Neurological: Alert, Normal Mood/Affect, Normal Dorsiflexion, CN II-XII Intact, Normal Plantar Flexion, Normal Gait, Normal Reflexes, No Motor/Sensory Deficits , Oriented x 3 Back Exam: Normal Inspection, Full Range of Motion, NT Extremities: Normal Inspection, Normal Range of Motion, Non-Tender, No Pedal Edema, Normal Capillary Refill Psychiatric: Normal Affect, Normal Mood Skin Exam: Warm, Dry, Intact, Normal Color, No Rash Course - Vital Signs Last Recorded V/S: Last Vital Signs Temp 36.5 C 07/07/18 16:04 Pulse 75 07/07/18 16:04 Resp 18 07/07/18 16:04 BP 155/71 H 07/07/18 16:04 Pulse Ox 93 L 07/07/18 16:04 - Re-Assessments/Exams Free Text/Narrative Re-Assessment/Exam: 07/07/18 17:01 Ordinarily, I performed the Ephraim-Hallpike maneuver on patients with positional vertigo, however, in this case, I did not, because her vertigo is relatively severe, and unless I'm able to determine specifically which of the 6 semicircular canals is affected, there is no real point putting her through the Ephraim-Hallpike maneuver, only to determine which side is affected. For today's purposes, I will refill the patient's prescription of meclizine and prescribe some Zofran ODT. I will refer her to Dr. Sharma in [place], however, I am told that there may be a visiting ENT at the [facility], therefore I will have the patient call her PCP's office, Dr. Quintana, on Monday, to see if that is true, and if so, refer her to them. Departure - Departure Time of Disposition: 17:00 Disposition: Home, Self-Care 01 Condition: Fair Clinical Impression: BPPV (benign paroxysmal positional vertigo) - Discharge Information *PRESCRIPTION DRUG MONITORING PROGRAM REVIEWED*: Not Applicable *COPY OF PRESCRIPTION DRUG MONITORING REPORT IN PATIENT SHIRAZ: Not Applicable Prescriptions: Meclizine [Antivert] 1 tab PO Q6H PRN #20 tab PRN Reason: Dizziness Ondansetron [Zofran ODT] 1 tab PO Q8H PRN #10 tab.dis PRN Reason: Nausea/Vomiting Instructions: Vertigo, Rgmh-[id number]-Ulme Referrals: Alejo Sharma MD [Ordering Only Provider] - Frank Quintana MD [Physician] - Forms: ED Department Discharge Additional Instructions: You were seen in the emergency room for vertigo with nausea that developed this morning. 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 BPPV can be definitively treated with canalith repositioning maneuvers by a physical therapist, but first you need to find out which of the 6 semicircular canals is blocked. This is done by an ENT. Until that time, you may take meclizine to help with your dizziness symptoms and Zofran to help with your nausea. Prescriptions for meclizine and Zofran have been sent to the [facility], located in the [employer] [facility]. Take one tablet of meclizine up to every 6 hours, as needed for dizziness. Dissolve one tablet of Zofran on your tongue up to every 8 hours, as needed for nausea/vomiting. We recommend that you follow-up with your PCP, Dr. Quintana, this coming Monday , 07/09/2018, to see if he can refer you to an ENT here in [place]. If he cannot, please follow-up with the ENT Dr. Alejo Sharma in [place] at the next available appointment. He will then refer you to physical therapy. If any other problems, please do not hesitate to return to the ER.
== END 2018-07-07 17:03 | disposition home or self-care (01) ==
LOC: JD.ED 15:58
DX: H81.10 Benign paroxysmal vertigo, unspecified ear (principal); Z88.1 Allergy status to other antibiotic agents; Z88.8 Allergy status to other drugs, medicaments and biological substances; Z79.899 Other long term (current) drug therapy; Z87.891 Personal history of nicotine dependence
CPT/HCPCS: 99283

== ENCOUNTER 2019-12-30 11:43 | Emergency (ER) | payer MEDICARE, BC ==
[2019-12-30 11:52] VITALS: BP 149/80; PULSE 92
--- NOTE | 2019-12-30 12:25 | EDM.PDOC ---
ED HPI GENERAL MEDICAL PROBLEM - General Chief Complaint: Back Pain or Injury Stated Complaint: KIDNEY PAIN Time Seen by Provider: 12/30/19 11:57 Source of Information: Reports: Patient, RN Notes Reviewed - History of Present Illness INITIAL COMMENTS - FREE TEXT/NARRATIVE: 69 yr old female with L low back pain for the past 3 to 4 days, worse since last evening. Does not radiate. occasional mild dysuria. No nausea, vomiting, fever or chills. Better to lie still, worse to move. Left Upper Pain Score (Numeric/FACES): 8 - Related Data Allergies Allergy/AdvReac Type Severity Reaction Status Date / Time amoxicillin trihydrate Allergy Severe Hives Verified 12/30/19 11:53 [From Augmentin] doxycycline Allergy Severe Swelling Verified 12/30/19 11:53 potassium clavulanate Allergy Severe Hives Verified 12/30/19 11:53 [From Augmentin] Zutsbfo-Idh-Dtt Reductase AdvReac Muscle Verified 12/30/19 11:53 Inhibitor Aches Home Meds: Home Meds Docusate Sodium [Colace] 100 mg PO BEDTIME 08/30/13 [History] Levothyroxine Sodium [Synthroid] 112 mcg PO DAILY 08/30/13 [History] Colesevelam HCl [Welchol] 625 mg PO BID 04/24/14 [History] Gemfibrozil 300 mg PO BID 08/13/16 [History] Gabapentin [Neurontin] 300 mg PO TID 12/08/16 [History] Relafen. 500 mg PO BID 12/08/16 [History] amLODIPine [Norvasc] 10 mg PO DAILY 12/08/16 [History] Aspirin 81 mg PO DAILY 07/07/18 [History] Calcium Carbonate/Vitamin D3 [Calcium 600 + Vit D 200] 1 tab PO DAILY 07/07/18 [History] Fluconazole 150 mg PO DAILY 07/07/18 [History] L Acidophil/B Lactis/B Longum [Florajen3] 400 mg PO DAILY 07/07/18 [History] Magnesium Oxide [Magnesium] 400 mg PO DAILY 07/07/18 [History] Meclizine [Antivert] 1 tab PO Q6H PRN #20 tab 07/07/18 [Rx] Metoclopramide HCl [Reglan] 10 mg PO QID PRN 07/07/18 [History] Mirtazapine 15 mg PO DAILY 07/07/18 [History] Multivitamins [Tab-A-Ashly] 1 tab PO DAILY 07/07/18 [History] Niacin 500 mg PO DAILY 07/07/18 [History] Omeprazole 20 mg PO DAILY 07/07/18 [History] Ondansetron [Zofran ODT] 1 tab PO Q8H PRN #10 tab.dis 07/07/18 [Rx] Ubidecarenone [Co Q-10] 10 mg PO DAILY 07/07/18 [History] fentaNYL [Duragesic] 1 patch TD Q72H 07/07/18 [History] Naproxen [Naprosyn] 375 mg PO BID #10 tab 12/30/19 [Rx] levoFLOXacin [Levaquin] 500 mg PO DAILY #7 tab 12/30/19 [Rx] Past Medical History HEENT History: Reports: Impaired Vision, Other (See Below) Other HEENT History: Wears glasses Cardiovascular History: Reports: High Cholesterol, Hypertension Respiratory History: Reports: None Gastrointestinal History: Reports: Diverticulosis, GERD, Other (See Below) Other Gastrointestinal History: diverticulitis Genitourinary History: Reports: None 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: Endometriosis, Other (See Below) 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 R 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 Musculoskeletal History: Reports: Fibromyalgia, Osteoarthritis Other Musculoskeletal History: Restless leg syndrome Neurological History: Reports: None Psychiatric History: Reports: Other (See Below) Endocrine/Metabolic History: Reports: Hypothyroidism, Obesity/BMI 30+ Hematologic History: Reports: None Immunologic History: Reports: None Oncologic (Cancer) History: Reports: None Dermatologic History: Reports: None - Past Surgical History Head Surgeries/Procedures: Reports: None HEENT Surgical History: Reports: Cataract Surgery, Oral Surgery, Tonsillectomy Respiratory Surgical History: Reports: None GI Surgical History: Reports: Appendectomy, Cholecystectomy, Other (See Below) Other GI Surgeries/Procedures: part of intestine removed Female Surgical History: Reports: D&C, Other (See Below) Other Female Surgeries/Procedures: ruptured ovary Neurological Surgical History: Reports: None Musculoskeletal Surgical History: Reports: Knee Replacement Oncologic Surgical History: Reports: None Dermatological Surgical History: Reports: None Social & Family History - Tobacco Use Smoking Status *Q: Former Smoker Used Tobacco, but Quit: Yes Month/Year Tobacco Last Used: 11 years - Caffeine Use Caffeine Use: Reports: None - Recreational Drug Use Recreational Drug Use: No - Living Situation & Occupation Living situation: Reports: , Alone Occupation: Retired ED ROS GENERAL - Review of Systems Review Of Systems: See Below Constitutional: Denies: Fever, Chills, Diaphoresis HEENT: Reports: No Symptoms Respiratory: Denies: Shortness of Breath, Cough Cardiovascular: Denies: Chest Pain GI/Abdominal: Denies: Abdominal Pain, Nausea, Vomiting Musculoskeletal: Reports: Back Pain. Denies: Leg Pain Skin: Reports: No Symptoms Neurological: Reports: No Symptoms ED EXAM,LOWER BACK PAIN/INJURY - Physical Exam Exam: See Below General Appearance: Alert, No Apparent Distress (at rest) Head: Atraumatic Neck: Supple Respiratory/Chest: No Respiratory Distress, Lungs Clear, Normal Breath Sounds Cardiovascular: Regular Rate, Rhythm Back Exam: CVA Tenderness (L), Paraspinal Tenderness (L low back) Extremities: Normal Inspection Neurological: Alert, No Motor/Sensory Deficits Skin Exam: Warm, Dry, Normal Color Course - Vital Signs Last Recorded V/S: Last Vital Signs Temp 98 F 12/30/19 11:49 Pulse 92 12/30/19 11:49 Resp 16 12/30/19 11:49 BP 149/80 H 12/30/19 11:49 Pulse Ox 96 12/30/19 11:49 - Orders/Labs/Meds Orders: Active Orders 24 hr Category Date Time Status CULTURE URINE [RM] Stat Lab 12/30/19 12:50 Received Labs: Laboratory Tests 12/30/19 Range/Units 12:30 Urine Color Yellow (Yellow) Urine Appearance Clear (Clear) Urine pH 6.0 (5.0-8.0) Ur Specific Prospect 1.020 (1.005-1.030) Urine Protein Negative (Negative) Urine Glucose (UA) Negative (Negative) Urine Ketones Trace H (Negative) Urine Occult Blood Negative (Negative) Urine Nitrite Negative (Negative) Urine Bilirubin Negative (Negative) Urine Urobilinogen 0.2 (0.2-1.0) Ur Leukocyte Esterase 1+ H (Negative) U Hyaline Cast (Auto) 0-5 (0-5) /lpf Urine RBC 0-5 (0-5) /hpf Urine WBC 10-20 H (0-5) /hpf Ur Squamous Epith Cells 0-5 (0-5) /hpf Amorphous Sediment Few H (NOT SEEN) /hpf Urine Bacteria Few (FEW) /hpf Urine Mucus Few (FEW) /hpf Meds: Medications Discontinued Medications Generic Name Dose Route Start Last Admin Trade Name Eli PRN Reason Stop Dose Admin Levofloxacin 500 mg 12/30/19 13:20 Levaquin PO 12/30/19 13:21 ONETIME ONE Naproxen 375 mg 12/30/19 21:00 Naprosyn PO Q12HR [facility] - Re-Assessments/Exams Free Text/Narrative Re-Assessment/Exam: 12/30/19 13:53 Ua does show UTI, will do a culture, discharge instr. as documented. Departure - Departure Time of Disposition: 13:18 Disposition: Home, Self-Care 01 Condition: Fair Clinical Impression: Back pain Qualifiers: Back pain location: low back pain Chronicity: acute Back pain laterality: left Sciatica presence: without sciatica Qualified Code(s): M54.5 - Low back pain UTI (urinary tract infection) Qualifiers: Urinary tract infection type: site unspecified Hematuria presence: without hematuria Qualified Code(s): N39.0 - Urinary tract infection, site not specified - Discharge Information Prescriptions: levoFLOXacin [Levaquin] 500 mg PO DAILY #7 tab Naproxen [Naprosyn] 375 mg PO BID #10 tab Instructions: Urinary Tract Infection, Adult, [id number], Chronic Back Pain, [id number] Referrals: Jen Lerma MD [Primary Care Provider] - Forms: ED Department Discharge Additional Instructions: Rest back, no heavy lifting, alternate ice and heat as needed. Continue current meds. Naprosyn 375 mg twice daily for 5 days. Levaquin 500 mg daily for 7 days. Urine culture has been done. Follow up clinic if not much better within 5 to 7 days as expected. Sepsis Event Note (ED) - Evaluation Sepsis Screening Result: No Definite Risk - Focused Exam Vital Signs: Vital Signs Temp Pulse Resp BP Pulse Ox 12/30/19 11:49 98 F 92 16 149/80 H 96 - My Orders Last 24 Hours: My Active Orders 12/30/19 12:50 CULTURE URINE [RM] Stat - Assessment/Plan Last 24 Hours: My Active Orders 12/30/19 12:50 CULTURE URINE [RM] Stat
[2019-12-30] MEDS ORDERED: Levofloxacin 250 MG Tab PO ONE (13:20)
== END 2019-12-30 13:30 | disposition home or self-care (01) ==
LOC: JD.ED 11:43
DX: M54.5 Low back pain (principal); I10 Essential (primary) hypertension; K21.9 Gastro-esophageal reflux disease without esophagitis; E03.9 Hypothyroidism, unspecified; G25.81 Restless legs syndrome; M19.90 Unspecified osteoarthritis, unspecified site; E66.9 Obesity, unspecified; Z68.34 Body mass index [BMI] 34.0-34.9, adult; Z88.1 Allergy status to other antibiotic agents; Z88.8 Allergy status to other drugs, medicaments and biological substances; Z79.82 Long term (current) use of aspirin; Z79.899 Other long term (current) drug therapy
CPT/HCPCS: 81001; 87086; 99283

== ENCOUNTER 2021-02-27 20:22 | Emergency (ER) | payer MEDICARE, BC ==
[2021-02-27 20:46] VITALS: PULSE 95
--- NOTE | 2021-02-27 20:56 | EDM.PDOC ---
ED HPI GENERAL MEDICAL PROBLEM - General Chief Complaint: Back Pain or Injury Stated Complaint: BACK PAIN Time Seen by Provider: 02/27/21 20:41 Source of Information: Reports: Patient, RN Notes Reviewed History Limitations: Reports: No Limitations - History of Present Illness INITIAL COMMENTS - FREE TEXT/NARRATIVE: Patient is a 70-year-old female who presents to the ER for evaluation of her left lower back pain. Patient states that this started earlier this morning, and has persisted throughout the day seems to worsen with movement only as soon as she is is laying still and not moving the pain seems to get better. States it is sharp stabbing in nature. She is had pain like this only once before, when she had gallbladder issues. She took Chappell tablet and gabapentin earlier today for pain management. States that did not really seem to help much. She has not noted any blood in her urine, no fevers, chills, cough, shortness of breath or any other sick-like symptoms. Denying any numbness or tingling into her legs. Patient is denying any trauma to the area. And the friend in her room said that she is really not that active of a person, and has no prior back injuries/ issues that she is aware of. Treatments [employer]: Reports: Other Medication(s) Other Treatments [employer]: gabapentin, hydrocodone Lower Back Pain Score (Numeric/FACES): 10 - Related Data Allergies Allergy/AdvReac Type Severity Reaction Status Date / Time amoxicillin trihydrate Allergy Severe Hives Verified 02/27/21 20:41 [From Augmentin] doxycycline Allergy Severe Swelling Verified 02/27/21 20:41 potassium clavulanate Allergy Severe Hives Verified 02/27/21 20:41 [From Augmentin] Home Meds: Home Meds Docusate Sodium [Colace] 100 mg PO BEDTIME 08/30/13 [History] Levothyroxine Sodium [Synthroid] 112 mcg PO DAILY 08/30/13 [History] Gabapentin [Neurontin] 300 mg PO TID 12/08/16 [History] amLODIPine [Norvasc] 10 mg PO DAILY 12/08/16 [History] Aspirin 81 mg PO DAILY 07/07/18 [History] Calcium Carbonate/Vitamin D3 [Calcium 600 + Vit D 200] 1 tab PO DAILY 07/07/18 [History] Fluconazole 150 mg PO DAILY 07/07/18 [History] L Acidophil/B Lactis/B Longum [Florajen3] 400 mg PO DAILY 07/07/18 [History] Magnesium Oxide [Magnesium] 400 mg PO DAILY 07/07/18 [History] Multivitamins [Tab-A-Ashly] 1 tab PO DAILY 07/07/18 [History] Omeprazole 20 mg PO DAILY 07/07/18 [History] Ubidecarenone [Co Q-10] 10 mg PO DAILY 07/07/18 [History] Hydrocodone/Acetaminophen [HYDROcodone-Acetaminophen 10-325 MG] 1 each PO Q6H PRN 02/27/21 [History] Orphenadrine [Norflex] 100 mg PO BID PRN #20 tab 02/27/21 [Rx] Rosuvastatin [Crestor] 20 mg PO DAILY 02/27/21 [History] traZODone 50 mg PO BEDTIME 02/27/21 [History] Past Medical History HEENT History: Reports: Impaired Vision, Other (See Below) Other HEENT History: wears glasses Cardiovascular History: Reports: High Cholesterol, Hypertension Respiratory History: Reports: None Gastrointestinal History: Reports: Diverticulosis, GERD, Other (See Below) Other Gastrointestinal History: diverticulitis Genitourinary History: Reports: None 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: Reports: Endometriosis, Other (See Below) Other 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: Partial removal of R ovary Musculoskeletal History: Reports: Fibromyalgia, Osteoarthritis Other Musculoskeletal History: Restless leg syndrome Neurological History: Reports: None Psychiatric History: Reports: Other (See Below) Endocrine/Metabolic History: Reports: Hypothyroidism, Obesity/BMI 30+ Hematologic History: Reports: None Immunologic History: Reports: None Oncologic (Cancer) History: Reports: None Dermatologic History: Reports: None - Past Surgical History Head Surgeries/Procedures: Reports: None HEENT Surgical History: Reports: Cataract Surgery, Oral Surgery, Tonsillectomy Other HEENT Surgeries/Procedures: 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; 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 GI Surgical History: Reports: Appendectomy, Cholecystectomy, Other (See Below) Other GI Surgeries/Procedures: part of intestine removed Female Surgical History: Reports: D&C, Other (See Below) Other Female Surgeries/Procedures: ruptured ovary Musculoskeletal Surgical History: Reports: Knee Replacement Oncologic Surgical History: Reports: None Social & Family History - Tobacco Use Tobacco Use Status *Q: Former Tobacco User Used Tobacco, but Quit: Yes Month/Year Tobacco Last Used: 04/2008 - Caffeine Use Caffeine Use: Reports: Coffee - Recreational Drug Use Recreational Drug Use: No - Living Situation & Occupation Living situation: Reports: , Alone Occupation: Retired ED ROS GENERAL - Review of Systems Review Of Systems: Comprehensive ROS is negative, except as noted in HPI. ED EXAM,LOWER BACK PAIN/INJURY - Physical Exam Exam: See Below Exam Limited By: No Limitations General Appearance: Alert, WD/WN, No Apparent Distress Respiratory/Chest: No Respiratory Distress, Lungs Clear, Normal Breath Sounds, Chest Non-Tender Cardiovascular: Normal Peripheral Pulses, Regular Rate, Rhythm, No Edema GI/Abdominal: Normal Bowel Sounds, Soft, Non-Tender, No Distention, No Mass Extremities: Normal Inspection, Normal Capillary Refill Neurological: Alert, Normal Mood/Affect, Normal Dorsiflexion, Normal Plantar Flexion, Abnormal Gait (slight limping gait) Psychiatric: Normal Affect, Normal Mood Skin Exam: Warm, Dry, Intact, Normal Color, No Rash Course - Vital Signs Last Recorded V/S: Last Vital Signs Temp 98.2 F 02/27/21 20:44 Pulse 95 02/27/21 20:44 Resp 16 02/27/21 20:44 BP 163/79 H 02/27/21 20:44 Pulse Ox 94 L 02/27/21 20:44 - Orders/Labs/Meds Orders: Active Orders 24 hr Category Date Time Status Vaccine to be Administered/Admin Charge [RC] ASDIRECTED Care 02/27/21 21:59 Active Pharmacy to Dose - InFluenza V [Pharmacy to Dose - Med 02/27/21 21:59 Once InFluenza Vaccine] 1 each IM ONETIME ONE Medication Orders Influenza Virus Vaccine (Pharmacy To Dose - Influenza Vaccine) 1 each IM ONETIME ONE Stop: 02/27/21 22:00 Labs: Laboratory Tests 02/27/21 Range/Units 21:10 Urine Color Yellow (Yellow) Urine Appearance Clear (Clear) Urine pH 5.5 (5.0-8.0) Ur Specific [place] > or = 1.030 (1.005-1.030) Urine Protein Negative (Negative) Urine Glucose (UA) Negative (Negative) Urine Ketones Trace H (Negative) Urine Occult Blood Negative (Negative) Urine Nitrite Negative (Negative) Urine Bilirubin Negative (Negative) Urine Urobilinogen 0.2 (0.2-1.0) Ur Leukocyte Esterase Negative (Negative) Urine RBC 0-5 (0-5) /hpf Urine WBC 5-10 H (0-5) /hpf Ur Squamous Epith Cells 0-5 (0-5) /hpf Urine Bacteria Few (FEW) /hpf Urine Mucus Moderate H (FEW) /hpf Meds: Medications Generic Name Dose Route Start Last Admin Trade Name Eli PRN Reason Stop Dose Admin Influenza Virus Vaccine 1 each 02/27/21 21:59 Pharmacy To Dose - Influenza Vaccine IM 02/27/21 22:00 ONETIME ONE Discontinued Medications Generic Name Dose Route Start Last Admin Trade Name Julioq PRN Reason Stop Dose Admin Ketorolac Tromethamine 60 mg 02/27/21 21:13 02/27/21 21:28 Ketorolac 60 Mg/2 Ml Sdv IM 02/27/21 21:14 60 mg ONETIME ONE Administration Orphenadrine Citrate 100 mg 02/27/21 21:13 02/27/21 21:28 Orphenadrine 100 Mg Tab.Er PO 02/27/21 21:14 100 mg ONETIME ONE Administration - Re-Assessments/Exams Free Text/Narrative Re-Assessment/Exam: 02/27/21 21:12 Patient presents to the ER for evaluation of her low back pain. We will get a urinalysis for ongoing management, patient's never had a kidney stone, again that the pain seems to be worsened by movement only which would suggest more musculoskeletal origin versus kidney stone or otherwise. There is quite a bit of blood in the urine, then we will go forward with CT or other imaging purposes. We will go ahead and try some Toradol and Norflex for ongoing management. 02/27/21 22:00 Patient's urinalysis demonstrates no blood in the urine, so kidney stone is unlikely she did state that she got pain relief from the Toradol and Norflex so we will give her a prescription for Norflex for ongoing management however follow-up in clinic in a few days if not feeling much better. Patient did verbalize that she would take a flu shot at [facility]'s visit as well, so this has been ordered. Departure - Departure Time of Disposition: 22:01 Disposition: Home, Self-Care 01 Condition: Good Clinical Impression: Low back pain Qualifiers: Chronicity: acute Back pain laterality: left Sciatica presence: without sciatica Qualified Code(s): M54.50 - Low back pain, unspecified - Discharge Information *PRESCRIPTION DRUG MONITORING PROGRAM REVIEWED*: No *COPY OF PRESCRIPTION DRUG MONITORING REPORT IN PATIENT SHIRAZ: No Prescriptions: Orphenadrine [Norflex] 100 mg PO BID PRN #20 tab PRN Reason: Spasms Instructions: Acute Back Pain, Adult Referrals: Jne Lerma MD [Primary Care Provider] - Forms: ED Department Discharge Additional Instructions: You have been evaluated in the ED for your low back pain. Urinalysis was unremarkable and had no sign of any blood to suggest a kidney stone. Your pain did seem to respond well to the Toradol and Norflex, which means that your pain is most likely musculoskeletal. You have been given a prescription for Norflex. This will be 1 tablet 2 times a day as needed for muscle spasms. Your prescription was electronically sent to [facility] pharmacy located near [facility], this pharmacy is only open from 12 to 4 PM on Sundays, you will need to go there during this timeframe to obtain this medication and take as prescribed. Please use ice/heat as tolerated to the affected area. Please try to elevate the affected area to relieve swelling. You may take ibuprofen 600mg q6 hrs for pain relief. Please do so until you have a tolerable level of pain with activity. Do not exceed 3200mg ibuprofen in a 24 hour time period. You may continue to take your regular prescriptions as prescribed by your care provider for ongoing pain management. Please follow-up with your regular provider for re-evaluation, if your injury is not feeling much better in roughly 7 to 10 days time. Please return to ED if your symptoms should change or worsen. Sepsis Event Note (ED) - Evaluation Sepsis Screening Result: No Definite Risk - Focused Exam Vital Signs: Vital Signs Temp Pulse Resp BP Pulse Ox 02/27/21 20:44 98.2 F 95 16 163/79 H 94 L - My Orders Last 24 Hours: My Active Orders 02/27/21 21:59 Vaccine to be Administered/Admin Charge [] ASDIRECTED Pharmacy to Dose - InFluenza V [Pharmacy to Dose - InFluenza Vaccine] 1 each IM ONETIME ONE - Assessment/Plan Last 24 Hours: My Active Orders 02/27/21 21:59 Vaccine to be Administered/Admin Charge [RC] ASDIRECTED Pharmacy to Dose - InFluenza V [Pharmacy to Dose - InFluenza Vaccine] 1 each IM ONETIME ONE
[2021-02-27] MEDS ORDERED: Ketorolac 60 MG/2 ML SDV IM ONE (21:13)
[2021-02-27] MEDS ORDERED: Orphenadrine 100 MG Tab.ER PO ONE (21:13)
[2021-02-27] MEDS ORDERED: FLU Vacc QS2021(65UP)/MF59C/PF 60 MCG/0.5 ML Syringe IM ONE (22:15)
[2021-02-27 22:23] VITALS: BP 140/70
== END 2021-02-27 22:20 | disposition home or self-care (01) ==
LOC: JD.ED 20:22
DX: M54.50 Low back pain, unspecified (principal); K21.9 Gastro-esophageal reflux disease without esophagitis; E78.00 Pure hypercholesterolemia, unspecified; I10 Essential (primary) hypertension; E03.9 Hypothyroidism, unspecified; E66.9 Obesity, unspecified; Z68.33 Body mass index [BMI] 33.0-33.9, adult; Z87.891 Personal history of nicotine dependence; Z88.0 Allergy status to penicillin; Z88.1 Allergy status to other antibiotic agents; Z79.82 Long term (current) use of aspirin; Z79.899 Other long term (current) drug therapy
CPT/HCPCS: 81001; 90694; 96372; 99283; A9270; G0008; J1885

== ENCOUNTER 2021-09-26 16:40 | Emergency (ER) | payer MEDICARE, BC ==
[2021-09-26 17:24] VITALS: BP 146/78; PULSE 78
[2021-09-26] MEDS ORDERED: Triamcinolone Acetonide 40 MG/ML 1 ML SDV INJECT ONE (17:44)
[2021-09-26] MEDS ORDERED: Lidocaine 1% 10 ML MDV INJECT ONE (17:44)
== END 2021-09-26 18:57 | disposition home or self-care (01) ==
LOC: JD.ED 16:40
DX: M23.91 Unspecified internal derangement of right knee (principal); K21.9 Gastro-esophageal reflux disease without esophagitis; E78.00 Pure hypercholesterolemia, unspecified; I10 Essential (primary) hypertension; E03.9 Hypothyroidism, unspecified; E66.9 Obesity, unspecified; Z68.38 Body mass index [BMI] 38.0-38.9, adult; Z90.49 Acquired absence of other specified parts of digestive tract; Z79.899 Other long term (current) drug therapy; Z79.82 Long term (current) use of aspirin; Z88.0 Allergy status to penicillin; Z88.1 Allergy status to other antibiotic agents
CPT/HCPCS: 20600; 99283; J3301; 20610

== ENCOUNTER 2021-12-08 05:50 | Day surgery (SDC) | payer MEDICARE, BC ==
[~2021-12-08 05:50] MED LIST changes: +Lidocaine 1%/Sod Bicarbonate in NS 8.4% 1 ML Syringe IDERM PRN; -Lidocaine 1%/Sod Bicarbonate in NS 8.4% 1 ML Syringe IV PRN; +Sodium Chloride 0.9% 10 ML Syringe FLUSH SCH
[2021-12-08] MEDS ORDERED: Acetaminophen 325 MG Tab PO SCH (06:00)
[2021-12-08] MEDS ORDERED: Morphine 8 MG, EPINEPHrine 0.3 MG, Cefuroxime 750 MG, Ketorolac 30 MG, Sodium Chloride ... PRN ×5 (06:00)
[2021-12-08] MEDS ORDERED: oxyCODONE ER 10 MG TAB.ER PO SCH (06:00)
[2021-12-08] MEDS ORDERED: Pregabalin 25 MG Cap PO SCH (06:00)
[2021-12-08] MEDS ORDERED: ceFAZolin 2 GM Vial ONE (06:26)
[2021-12-08] MEDS ORDERED: Propofol 200 MG/20 ML SDV ONE (06:26)
[2021-12-08] MEDS ORDERED: Midazolam 1 MG/ML 2 ML SDV ONE (06:26)
[2021-12-08] MEDS ORDERED: fentaNYL 100 MCG/2 ML SDV ONE (06:26)
[2021-12-08] MEDS ORDERED: Lidocaine 1% 2 ML ONE (06:28)
[2021-12-08] MEDS ORDERED: Vancomycin 1 GM SDV ONE (06:34)
[2021-12-08 06:46] LABS: ESTIMATED GFR 68 mL/min (>60)
[2021-12-08] MEDS ORDERED: Ondansetron 4 MG/2 ML SDV IVPUSH PRN (07:30)
[2021-12-08] MEDS ORDERED: Phenylephrine HCl In 0.9% NaCl 1 MG/10 ML Vial ONE (07:30)
[2021-12-08] MEDS ORDERED: Ropivacaine 0.5% 5 MG/ML 30 ML SDV ONE (07:37)
[2021-12-08] MEDS ORDERED: EPINEPHrine 1 MG/ML SDV ONE (07:37)
[2021-12-08] MEDS ORDERED: ePHEDrine 50 MG/ML SDV ONE (07:38)
[2021-12-08] MEDS: fentaNYL 100 MCG/2 ML SDV IVPUSH PRN ×3 (09:06→10:30)
[2021-12-08] MEDS: HYDROmorphone 0.5 MG/0.5 ML Syringe IVPUSH PRN ×2 (09:33→10:25)
[2021-12-08] MEDS: oxyCODONE 5 MG Tab PO ONE ×2 (09:39→09:52)
[2021-12-08] MEDS ORDERED: Cyclobenzaprine 10 MG Tab PO ONE (10:18)
[2021-12-08 11:32] VITALS: BP 121/80
[2021-12-08 11:33] VITALS: PULSE 72
== END 2021-12-08 12:20 | disposition home or self-care (01) ==
LOC: JD.SDS 05:50
PROVIDERS: ATTEND Orthopaedic Surgery
DX: M17.11 Unilateral primary osteoarthritis, right knee (principal); E78.00 Pure hypercholesterolemia, unspecified; G89.4 Chronic pain syndrome; I10 Essential (primary) hypertension; M79.9 Soft tissue disorder, unspecified; F51.01 Primary insomnia; E03.8 Other specified hypothyroidism; E66.9 Obesity, unspecified; Z68.39 Body mass index [BMI] 39.0-39.9, adult; Z88.8 Allergy status to other drugs, medicaments and biological substances; Z90.49 Acquired absence of other specified parts of digestive tract; Z98.890 Other specified postprocedural states; Z87.891 Personal history of nicotine dependence
CPT/HCPCS: 0055T; 27447; 36415; 73560; 80053; 97116; 97161; A9270; C1713; C1776; J0171; J0690; J0697; J1170; J1885; J2250; J2270; J2704; J2795; J3010; J3370; J7120; 01402; 64450; 76942; 99100

== ENCOUNTER 2021-12-11 18:58 | Emergency (ER) | payer MEDICARE, BC ==
[2021-12-11 19:22] VITALS: BP 135/73; PULSE 105
== END 2021-12-11 20:00 | disposition home or self-care (01) ==
LOC: JD.ED 18:58
DX: G89.18 Other acute postprocedural pain (principal); M25.561 Pain in right knee; E78.00 Pure hypercholesterolemia, unspecified; I10 Essential (primary) hypertension; K21.9 Gastro-esophageal reflux disease without esophagitis; M19.90 Unspecified osteoarthritis, unspecified site; E66.9 Obesity, unspecified; Z68.35 Body mass index [BMI] 35.0-35.9, adult; Z88.1 Allergy status to other antibiotic agents; Z88.0 Allergy status to penicillin; Z79.899 Other long term (current) drug therapy; Z79.82 Long term (current) use of aspirin; Z87.891 Personal history of nicotine dependence
CPT/HCPCS: 99283

== ENCOUNTER 2022-09-03 21:15 | Emergency (ER) | payer MEDICARE, BC ==
[2022-09-03 21:53] LABS: BASOPHILS ABSOLUTE AUTO 0.02 K/mm3 (0.01-0.08); BASOPHILS PERCENT AUTO 0.2 % (0.1-1.2); EOSINOPHILS ABSOLUTE AUTO 0.01 K/mm3 (0.04-0.36); EOSINOPHILS PERCENT AUTO 0.1 (0.7-5.8); HEMATOCRIT 44.2 % (34.1-44.9); HEMOGLOBIN 14.5 gm/dl (11.2-15.7); IMMATURE GRAN ABSOLUTE AUTO 0.02 K/mm3 (0.00-0.10); IMMATURE GRAN PERCENT AUTO 0.2 % (<=1.0); LYMPHOCYTES ABSOLUTE AUTO 3.34 K/mm3 (1.18-3.74); LYMPHOCYTES PERCENT AUTO 30.4 % (19.3-51.7); MEAN CORPUSCULAR HEMOGLOBIN 32.1 pg (25.6-32.2); MEAN CORPUSCULAR HGB CONC 32.8 g/dl (32.2-35.5); MEAN CORPUSCULAR VOLUME 97.8 fl (79.4-94.8); MEAN PLATELET VOLUME 9.9 fl (9.4-12.3); MONOCYTES ABSOLUTE AUTO 0.63 K/mm3 (0.24-0.36); MONOCYTES PERCENT AUTO 5.7 % (4.7-12.5); NEUTROPHILS ABSOLUTE AUTO 6.98 K/mm3 (1.56-6.13); NEUTROPHILS PERCENT AUTO 63.4 % (34.0-71.1); PLATELET COUNT,PLT 242 K/mm3 (182-369); RED BLOOD CELL COUNT 4.52 M/mm3 (3.98-5.22)
[2022-09-03 22:33] LABS: A/G RATIO 0.9 (1-2); ALBUMIN 3.3 g/dl (3.4-5.0); ANION GAP 12.8 (5-15); BILIRUBIN TOTAL 0.1 mg/dL (0.2-1.0); BUN/CREATININE RATIO 16.3 (14-18); CALCIUM 8.4 mg/dL (8.5-10.1); CREATININE 0.8 mg/dL (0.55-1.02); EST CRCL DRUG DOSING (CG) 51.81 mL/min; POTASSIUM,K 3.8 mEq/L (3.5-5.1); PROTEIN TOTAL,TP 6.9 g/dl (6.4-8.2); TSH 1.49 uIU/mL (0.358-3.74)
[2022-09-03 23:15] LABS: APPEARANCE,URINE CLEAR (Clear); BILIRUBIN,URINE NEGATIVE (Negative); COLOR,URINE YELLOW (Yellow); GLUCOSE,URINE NEGATIVE (Negative); KETONES,URINE NEGATIVE (Negative); LEUKOCYTE ESTERASE,URINE NEGATIVE (Negative); NITRITE,URINE NEGATIVE (Negative); OCCULT BLOOD,URINE NEGATIVE (Negative); PROTEIN,URINE NEGATIVE (Negative); UROBILINOGEN,URINE 0.2 (0.2-1.0)
[2022-09-03 23:22] LABS: BACTERIA,URINE RARE /hpf (FEW); MUCUS,URINE FEW /hpf (FEW); RBC,URINE NOT SEEN /hpf (0-5); SQUAMOUS EPITHELIAL CELLS,UR 0-5 /hpf (0-5); WBC,URINE 0-5 /hpf (0-5)
[2022-09-03 23:25] LABS: BARBITURATE SCREEN,URINE NEGATIVE (CUTOFF=200); BENZODIAZEPINES SCREEN,URINE NEGATIVE (CUTOFF=150); BUPRENORPHINE SCREEN,URINE NEGATIVE (CUTOFF=10); METHADONE SCREEN, URINE NEGATIVE (CUTOFF=200); METHAMPHETAMINES SCREEN, URINE NEGATIVE (CUTOFF=500); OXYCODONE SCREEN,URINE NEGATIVE (CUT0FF=100); PROPOXYPHENE SCREEN,URINE NEGATIVE (CUTOFF=300); THC SCREEN,URINE 20 NG/ML NEGATIVE (CUTOFF=50)
[2022-09-03 23:34] LABS: AMPHETAMINES SCREEN, URINE NEGATIVE (CUTOFF=500)
[2022-09-04] MEDS ORDERED: amLODIPine 5 MG Tab PO ONE (00:35)
[2022-09-04 01:00] VITALS: BP 169/96; PULSE 102
== END 2022-09-04 01:00 | disposition home or self-care (01) ==
LOC: JD.ED 21:15
DX: I10 Essential (primary) hypertension (principal); E78.00 Pure hypercholesterolemia, unspecified; K21.9 Gastro-esophageal reflux disease without esophagitis; E03.9 Hypothyroidism, unspecified; E66.9 Obesity, unspecified; Z88.1 Allergy status to other antibiotic agents; Z88.0 Allergy status to penicillin; Z88.8 Allergy status to other drugs, medicaments and biological substances; Z79.899 Other long term (current) drug therapy; Z68.41 Body mass index [BMI] 40.0-44.9, adult
CPT/HCPCS: 36415; 71045; 80053; 80306; 81001; 83735; 84443; 84484; 85025; 93005; 99284; A9270; 93010; 99283

== ENCOUNTER 2023-03-03 22:51 | Emergency (ER) | payer MEDICARE, BC ==
[2023-03-03] MEDS ORDERED: Sodium Chloride 0.9% 1,000 ML IV ONE (22:55)
[2023-03-03 23:20] LABS: BASOPHILS PERCENT AUTO 0.3 % (0.0-1.0); EOSINOPHILS ABSOLUTE AUTO 0.1 K/mm3 (0.0-0.4); EOSINOPHILS PERCENT AUTO 0.8 % (0.0-6.0); HEMATOCRIT 43.6 % (37.0-47.0); HEMOGLOBIN 14.7 gm/dl (12.0-16.0); IMMATURE GRAN ABSOLUTE AUTO 0.02 K/mm3 (0.00-0.05); IMMATURE GRAN PERCENT AUTO 0.2 % (0.0-0.4); LYMPHOCYTES ABSOLUTE AUTO 3.2 K/mm3 (1.0-4.8); LYMPHOCYTES PERCENT AUTO 36.6 % (24.0-44.0); MEAN CORPUSCULAR HEMOGLOBIN 31.7 pg (28.0-32.0); MEAN CORPUSCULAR HGB CONC 33.7 g/dl (32.0-36.0); MEAN CORPUSCULAR VOLUME 94.2 fl (83.0-99.0); MEAN PLATELET VOLUME 10.1 fl (9.4-12.3); MONOCYTES ABSOLUTE AUTO 0.8 K/mm3 (0.0-0.8); MONOCYTES PERCENT AUTO 8.5 % (0.0-8.0); NEUTROPHILS ABSOLUTE AUTO 4.7 K/mm3 (1.8-7.7); NEUTROPHILS PERCENT AUTO 53.6 % (41.0-71.0); PLATELET COUNT,PLT 213 K/mm3 (150-400); RED BLOOD CELL COUNT 4.63 M/mm3 (4.10-5.30); WHITE BLOOD CELL COUNT,WBC 8.85 K/mm3 (3.9-11.3)
[2023-03-03 23:37] LABS: APPEARANCE,URINE SLT CLOUDY (Clear); BILIRUBIN,URINE NEGATIVE (Negative); COLOR,URINE LIGHT YELLOW (Yellow); GLUCOSE,URINE NEGATIVE (Negative); KETONES,URINE NEGATIVE (Negative); LEUKOCYTE ESTERASE,URINE TRACE (Negative); NITRITE,URINE NEGATIVE (Negative); OCCULT BLOOD,URINE NEGATIVE (Negative); PROTEIN,URINE 2+ (Negative); UROBILINOGEN,URINE 0.2 (0.2-1.0)
[2023-03-03 23:41] LABS: A/G RATIO 0.9 (1-2); ALANINE AMINOTRANSFERASE,ALT 16 U/L (14-59); ALBUMIN 3.4 g/dl (3.4-5.0); ALKALINE PHOSPHATASE 74 U/L (46-116); ANION GAP 12.9 (5-15); ASPARTATE AMNIOTRANSFERASE,AST 16 U/L (15-37); BILIRUBIN TOTAL 0.2 mg/dL (0.2-1.0); BLOOD UREA NITROGEN,BUN 14 mg/dL (7-18); BUN/CREATININE RATIO 17.5 (14-18); CALCIUM 9.1 mg/dL (8.5-10.1); CARBON DIOXIDE,CO2 25 mEq/L (21-32); CHLORIDE,CL 105 mEq/L (98-107); CREATININE 0.8 mg/dL (0.55-1.02); ESTIMATED GFR 77 mL/min (>60); GLUCOSE RANDOM 123 mg/dL (70-99); PROTEIN TOTAL,TP 7.1 g/dl (6.4-8.2); SODIUM,NA 139 mEq/L (136-145)
[2023-03-03 23:44] LABS: LACTIC ACID 1.2 mmol/L (0.4-2.0); POTASSIUM,K 3.9 mEq/L (3.5-5.1)
[2023-03-03 23:46] LABS: BACTERIA,URINE MANY /hpf (FEW); MUCUS,URINE FEW /hpf (FEW); RBC,URINE 0-5 /hpf (0-5); SQUAMOUS EPITHELIAL CELLS,UR 0-5 /hpf (0-5)
[2023-03-04 01:21] VITALS: PULSE 85
[2023-03-04] MEDS ORDERED: Diatrizoate Meglumine/Diatrizoate Sodium 37% 120 ML Bottle PO ONE (01:29)
[2023-03-04] MEDS ORDERED: Sodium Chloride 0.9% 10 ML Syringe FLUSH ONE (01:29)
[2023-03-04] MEDS ORDERED: Iopamidol 612 MG/ML 100 ML Bottle IVPUSH ONE (01:29)
[2023-03-04] MEDS ORDERED: Sodium Chloride 0.9% 100 ML IV SCH ×2 (01:30)
[2023-03-04 04:13] VITALS: BP 140/85
[2023-03-04] MEDS ORDERED: Morphine 4 MG/ML Syringe IVPUSH ONE (04:18)
[2023-03-04] MEDS ORDERED: Naloxone 0.4 MG/ML SDV IVPUSH PRN (04:18)
== END 2023-03-04 04:30 | disposition home or self-care (01) ==
LOC: JD.ED 22:51
DX: E86.0 Dehydration (principal); R10.32 Left lower quadrant pain; I10 Essential (primary) hypertension; E78.00 Pure hypercholesterolemia, unspecified; K21.9 Gastro-esophageal reflux disease without esophagitis; E03.9 Hypothyroidism, unspecified; E66.9 Obesity, unspecified; Z90.49 Acquired absence of other specified parts of digestive tract; Z88.1 Allergy status to other antibiotic agents; Z88.0 Allergy status to penicillin; Z79.899 Other long term (current) drug therapy
CPT/HCPCS: 36415; 74177; 80053; 81001; 83605; 83735; 85025; 86140; 87086; 96360; 99285; J3490; J7030; Q9963; Q9967; 87507; 99284

== ENCOUNTER 2023-11-13 08:08 | Day surgery (SDC) | payer MEDICARE, OTHER ==
[~2023-11-13 08:08] MED LIST changes: -Lactated Ringers 1,000 ML IV SCH; -Lidocaine 1%/Sod Bicarbonate in NS 8.4% 1 ML Syringe IDERM PRN
[2023-11-13] MEDS: Lactated Ringers 1,000 ML IV SCH (08:30)
[2023-11-13] MEDS ORDERED: Midazolam 1 MG/ML 2 ML SDV ONE (09:14)
[2023-11-13] MEDS ORDERED: fentaNYL 100 MCG/2 ML SDV ONE (09:14)
[2023-11-13] MEDS ORDERED: Lidocaine 1% 2 ML ONE (09:14)
[2023-11-13] MEDS ORDERED: Propofol 200 MG/20 ML SDV ONE ×3 (09:15→10:22)
[2023-11-13] MEDS: Ondansetron 4 MG/2 ML SDV IVPUSH PRN (09:20)
[2023-11-13 12:06] VITALS: BP 158/78; PULSE 72
== END 2023-11-13 11:45 | disposition home or self-care (01) ==
LOC: JD.SDS 08:08
PROVIDERS: ATTEND Surgery
DX: Z12.11 Encounter for screening for malignant neoplasm of colon (principal); D12.3 Benign neoplasm of transverse colon; D12.0 Benign neoplasm of cecum; D12.2 Benign neoplasm of ascending colon; D12.4 Benign neoplasm of descending colon; K31.7 Polyp of stomach and duodenum; K29.70 Gastritis, unspecified, without bleeding; K57.30 Diverticulosis of large intestine without perforation or abscess without bleeding; K22.89 Other specified disease of esophagus; K20.80 Other esophagitis without bleeding; K21.9 Gastro-esophageal reflux disease without esophagitis; K31.A0 Gastric intestinal metaplasia, unspecified; K31.89 Other diseases of stomach and duodenum; E78.5 Hyperlipidemia, unspecified; E03.9 Hypothyroidism, unspecified; E66.9 Obesity, unspecified; Z68.41 Body mass index [BMI] 40.0-44.9, adult; Z86.010 Personal history of colon polyps; Z79.899 Other long term (current) drug therapy; Z79.890 Hormone replacement therapy; Z88.8 Allergy status to other drugs, medicaments and biological substances; Z88.1 Allergy status to other antibiotic agents; Z87.891 Personal history of nicotine dependence; Z80.0 Family history of malignant neoplasm of digestive organs
CPT/HCPCS: 43239; 45380; J2250; J2704; J3010; J7120; J2405; J3490

== ENCOUNTER 2024-01-17 16:00 | Emergency (ER) | payer MEDICARE, OTHER ==
[2024-01-17 17:05] LABS: BASOPHILS PERCENT AUTO 0.3 % (0.0-1.0); EOSINOPHILS ABSOLUTE AUTO 0.1 K/mm3 (0.0-0.4); EOSINOPHILS PERCENT AUTO 0.7 % (0.0-6.0); HEMATOCRIT 43.2 % (37.0-47.0); HEMOGLOBIN 14.4 gm/dl (12.0-16.0); IMMATURE GRAN ABSOLUTE AUTO 0.03 K/mm3 (0.00-0.05); IMMATURE GRAN PERCENT AUTO 0.3 % (0.0-0.4); LYMPHOCYTES ABSOLUTE AUTO 3.3 K/mm3 (1.0-4.8); LYMPHOCYTES PERCENT AUTO 36.7 % (24.0-44.0); MEAN CORPUSCULAR HEMOGLOBIN 32.4 pg (28.0-32.0); MEAN CORPUSCULAR HGB CONC 33.3 g/dl (32.0-36.0); MEAN CORPUSCULAR VOLUME 97.3 fl (83.0-99.0); MEAN PLATELET VOLUME 9.7 fl (9.4-12.3); MONOCYTES ABSOLUTE AUTO 0.7 K/mm3 (0.0-0.8); MONOCYTES PERCENT AUTO 7.9 % (0.0-8.0); NEUTROPHILS ABSOLUTE AUTO 4.9 K/mm3 (1.8-7.7); NEUTROPHILS PERCENT AUTO 54.1 % (41.0-71.0); PLATELET COUNT,PLT 220 K/mm3 (150-400); RED BLOOD CELL COUNT 4.44 M/mm3 (4.10-5.30); WHITE BLOOD CELL COUNT,WBC 9.08 K/mm3 (3.9-11.3)
[2024-01-17] MEDS: Sodium Chloride 0.9% 1,000 ML IV SCH (17:20)
[2024-01-17 17:30] LABS: ALBUMIN 3.4 g/dl (3.4-5.0); ANION GAP 12.5 (5-15); BILIRUBIN TOTAL 0.3 mg/dL (0.2-1.0); BUN/CREATININE RATIO 14.3 (14-18); CALCIUM 8.7 mg/dL (8.5-10.1); CREATININE 0.7 mg/dL (0.55-1.02); EST CRCL DRUG DOSING (CG) 70.05 mL/min; POTASSIUM,K 3.5 mEq/L (3.5-5.1); PROTEIN TOTAL,TP 6.8 g/dl (6.4-8.2)
[2024-01-17 19:34] VITALS: BP 160/82; PULSE 104
== END 2024-01-17 19:10 | disposition home or self-care (01) ==
LOC: JD.ED 16:00
DX: E86.0 Dehydration (principal); I10 Essential (primary) hypertension; E78.00 Pure hypercholesterolemia, unspecified; E66.9 Obesity, unspecified; E03.9 Hypothyroidism, unspecified; Z88.8 Allergy status to other drugs, medicaments and biological substances; Z79.890 Hormone replacement therapy; Z79.899 Other long term (current) drug therapy; Z90.49 Acquired absence of other specified parts of digestive tract; Z68.30 Body mass index [BMI] 30.0-30.9, adult
CPT/HCPCS: 36415; 71045; 80053; 84484; 85025; 93005; 96360; 99285; J7030; 93010; 99282